=== PATIENT | female | born 1940 | race Caucasian/White ===

== ENCOUNTER 2017-12-05 08:35 | Outpatient (CLI) | payer MEDICARE, BC | END 2017-12-05 08:36 | disposition home or self-care (01) | LOC: BICMAMMO 08:35 | PROVIDERS: ATTEND Internal Medicine | DX: Z12.31 Encounter for screening mammogram for malignant neoplasm of breast (principal); M81.0 Age-related osteoporosis without current pathological fracture; R92.1 Mammographic calcification found on diagnostic imaging of breast; Z85.850 Personal history of malignant neoplasm of thyroid | CPT/HCPCS: 77063; 77067; 77080 ==

== ENCOUNTER 2018-01-31 14:05 | Outpatient (CLI) | payer MEDICARE, BC | END 2018-01-31 14:06 | disposition home or self-care (01) | LOC: BICRAD 14:05 | PROVIDERS: ATTEND Internal Medicine | DX: M25.551 Pain in right hip (principal); M25.552 Pain in left hip; M16.0 Bilateral primary osteoarthritis of hip ==

== ENCOUNTER 2018-11-12 07:15 | Emergency (ER) | payer MEDICARE, BC ==
[2018-11-12 07:59] LABS: #Basophils 0.1 thou/uL (0.0-0.2); #Eosinphils 0.1 thou/uL (0.0-0.7); #Lymphocytes 1.6 thou/uL (1.20-3.40); #Monocytes 1.4 thou/uL (0.11-0.59); #Neutrophils 7.6 thou/uL (1.40-6.50); %Eosinophils 0.8 % (0.0-10.0); %Lymphocytes 14.7 % (21.0-51.0); %Monocytes 13.3 % (0.0-10.0); %Neutrophils 70.1 % (42.0-75.0); Hemoglobin 14.2 g/dL (12.0-16.0); Mean Corpuscular HGB CONC 35.9 g/dL (32.0-36.0); Mean Corpuscular Hemoglobin 33.2 pg (27.0-31.0); Mean Corpuscular Volume 92.3 fL (78.0-98.0); Mean Platelet Volume 8.1 fL (7.4-10.4); Platelet Count 248 thou/uL (130-400); RBC Distribution Width 13.2 % (11.5-14.5); Red Blood Cell (RBC) Count 4.28 mill/uL (4.20-5.40); White Blood Cell (WBC) Count 10.8 thou/uL (4.8-10.8)
[2018-11-12] MEDS ORDERED: Metoprolol Tartrate 5 MG/5 ML VIAL ONE (07:59)
[2018-11-12] MEDS ORDERED: cloNIDine 0.1 MG TAB ONE (08:09)
[2018-11-12 08:15] LABS: ALT (SGPT) 12 U/L (8-55); AST (SGOT) 16 U/L (5-34); Albumin 4.3 g/dL (3.4-4.8); Alkaline Phosphatase 55 U/L (40-150); Anion Gap 17 mmol/L (10-20); BUN (Urea Nitrogen) 16 mg/dL (9.8-20.1); Bilirubin, Total 0.6 mg/dL (0.2-1.2); Calc. Creatinine Clearance 0 mL/min (70-130); Calcium 9.3 mg/dL (7.8-10.44); Carbon Dioxide 22 mmol/L (23-31); Chloride 101 mmol/L (98-107); Estimated GFR-MDRD 76; Globulin 2.3 g/dL (2.4-3.5); Glucose 120 mg/dL (83-110); Potassium 4.3 mmol/L (3.5-5.1); Protein, Total 6.6 g/dL (6.0-8.3); Sodium 136 mmol/L (136-145)
== END 2018-11-12 09:06 | disposition home or self-care (01) ==
LOC: ERS 07:15
DX: I10 Essential (primary) hypertension (principal); F31.9 Bipolar disorder, unspecified; Z79.82 Long term (current) use of aspirin; Z79.899 Other long term (current) drug therapy
CPT/HCPCS: 36415; 80053; 83880; 84484; 85025; 93005

== ENCOUNTER 2018-12-25 10:31 | Observation (INO) | payer MEDICARE, BC ==
[2018-12-25 11:01] LABS: #Basophils 0.1 thou/uL (0.0-0.2); #Eosinphils 0.1 thou/uL (0.0-0.7); #Monocytes 1.5 thou/uL (0.11-0.59); #Neutrophils 9.9 thou/uL (1.40-6.50); %Basophils 0.8 % (0.0-1.0); %Eosinophils 0.8 % (0.0-10.0); %Lymphocytes 14.4 % (21.0-51.0); %Monocytes 11.3 % (0.0-10.0); %Neutrophils 72.8 % (42.0-75.0); Hemoglobin 15.9 g/dL (12.0-16.0); Mean Corpuscular HGB CONC 34.4 g/dL (32.0-36.0); Mean Corpuscular Hemoglobin 32.2 pg (27.0-31.0); Mean Corpuscular Volume 93.4 fL (78.0-98.0); Mean Platelet Volume 8.7 fL (7.4-10.4); Platelet Count 372 thou/uL (130-400); RBC Distribution Width 12.1 % (11.5-14.5); Red Blood Cell (RBC) Count 4.95 mill/uL (4.20-5.40); White Blood Cell (WBC) Count 13.6 thou/uL (4.8-10.8)
--- NOTE | 2018-12-25 11:05 | RAD ---
SINGLE VIEW OF THE CHEST: Comparison: None. History: Abnormal EKG, chest pain. FINDINGS: Single view of the chest shows a normal sized cardiomediastinal silhouette. There is no evidence of c onsolidation, mass, or pleural effusion. The bones are unremarkable. IMPRESSION: No evidence of acute cardiopulmonary disease. POS: [facility]
[2018-12-25 11:31] LABS: Acetaminophen Less than 6.0 mcg/mL (10.0-30.0); Alcohol Less than 10 mg/dL (Less than 10); Salicylate Less than 8.0 mg/dL (15.0-30.0)
[2018-12-25 11:33] LABS: ALT (SGPT) 14 U/L (8-55); AST (SGOT) 15 U/L (5-34); Albumin 4.6 g/dL (3.4-4.8); Alkaline Phosphatase 62 U/L (40-150); Anion Gap 18 mmol/L (10-20); BUN (Urea Nitrogen) 12 mg/dL (9.8-20.1); Bilirubin, Total 0.9 mg/dL (0.2-1.2); CK (CPK) 49 U/L (29-168); Calc. Creatinine Clearance 0 mL/min (70-130); Carbon Dioxide 19 mmol/L (23-31); Chloride 100 mmol/L (98-107); Estimated GFR-MDRD 68; Globulin 2.9 g/dL (2.4-3.5); Glucose 123 mg/dL (83-110); Lipase 149 U/L (8-78); Potassium 4.7 mmol/L (3.5-5.1); Protein, Total 7.5 g/dL (6.0-8.3); Sodium 132 mmol/L (136-145)
[2018-12-25] MEDS ORDERED: Nitroglycerin 2% Ointment 1 INCH/1 GM Packet ONE (11:45)
[2018-12-25] MEDS ORDERED: Aspirin Chewable 81 MG TAB ONE (11:45)
[2018-12-25 11:56] LABS: Bilirubin Small (Negative); Blood, Urine Negative (Negative); Clarity CLEAR (Clear); Glucose, Urine (Dipstick) Negative (Negative); Leukocyte Trace (Negative); Nitrite Negative (Negative); Protein, Urine (Dipstick) 30 mg/dL (Neg-Trace); Specific Gravity, Urine 1.023 (1.002-1.036)
[2018-12-25 11:58] LABS: Bacteria/HPF None Seen HPF (None Seen); Pathc Cast-AUWi Flag 1.59 (0-2.49); RBC/HPF 0-3 HPF (0-3)
[2018-12-25 12:05] LABS: Amphetamine Not Detected (NotDetected); Barbiturates Screen Not Detected (NotDetected); Benzodiazepine Screen Not Detected (NotDetected); Cocaine Metabolite Screen Not Detected (NotDetected); Medtox Control Line Valid? VALID (VALID); Medtox Reader # READER 1; Methadone Not Detected (NotDetected); Methamphetamine Detected (NotDetected); Opiate Screen Not Detected (NotDetected); Oxycodone Screen Not Detected (NotDetected); Phencyclidine (PCP) Not Detected (NotDetected); THC/Cannabinoid Screen Not Detected (NotDetected); Tricyclic Screen Not Detected (NotDetected)
[2018-12-25 12:12] LABS: Hyaline Casts/LPF 0-3 HYALINE CAST LPF (0-3 Hyaline)
[2018-12-25] MEDS ORDERED: Acetaminophen 325 MG TAB PO PRN (15:51)
[2018-12-25] MEDS ORDERED: Senokot S 8.6-50 MG TAB PO PRN (15:51)
[2018-12-25] MEDS ORDERED: Bisacodyl 5 MG TAB PO PRN (15:51)
[2018-12-25 18:07] VITALS: BMI 32.4
[2018-12-25] MEDS: Enoxaparin Sodium 100 MG/ML SYRINGE SC SCH (20:31)
--- NOTE | 2018-12-25 20:36 | PDOC.EVN ---
Event Note - Event Note Event Note: pt seen an examined, send from pcp office for abnormal ekg. Pt has a hx of paroxysmal afib not on AC. pt states that she went into afib on sunday. Her heart rate has been <100 however she has been feeling weak. Pt has been under a lot of stress and feels this has triggered her afib. she went to her pcp and there was a concern for possible pause so she was sent to er.
[2018-12-26] MEDS ORDERED: ALPRAZolam 0.25 MG TAB PO PRN (01:09)
[2018-12-26] MEDS: Ondansetron ODT 4 MG TAB PO PRN ×2 (02:18→18:05)
[2018-12-26] MEDS: Calcium Carbonate 500 MG ChewTAB PO PRN ×3 (02:18→21:53)
[2018-12-26 06:33] LABS: #Basophils 0.1 thou/uL (0.0-0.2); #Eosinphils 0.3 thou/uL (0.0-0.7); #Lymphocytes 2.8 thou/uL (1.20-3.40); #Monocytes 1.6 thou/uL (0.11-0.59); #Neutrophils 8.3 thou/uL (1.40-6.50); %Basophils 0.5 % (0.0-1.0); %Eosinophils 2.3 % (0.0-10.0); %Lymphocytes 21.6 % (21.0-51.0); %Monocytes 12.3 % (0.0-10.0); %Neutrophils 63.2 % (42.0-75.0); Mean Corpuscular Volume 94.1 fL (78.0-98.0); Platelet Count 303 thou/uL (130-400); RBC Distribution Width 12.1 % (11.5-14.5); Red Blood Cell (RBC) Count 4.68 mill/uL (4.20-5.40); White Blood Cell (WBC) Count 13.1 thou/uL (4.8-10.8)
[2018-12-26 06:42] LABS: Anion Gap 17 mmol/L (10-20); BUN (Urea Nitrogen) 11 mg/dL (9.8-20.1); Calc. Creatinine Clearance 94 mL/min (70-130); Calcium 9.6 mg/dL (7.8-10.44); Carbon Dioxide 22 mmol/L (23-31); Chloride 97 mmol/L (98-107); Estimated GFR-MDRD 75; Glucose 83 mg/dL (83-110); Potassium 4.4 mmol/L (3.5-5.1); Sodium 132 mmol/L (136-145)
[2018-12-26] MEDS ORDERED: ADENOSINE 60 MG/20 ML VIAL ONE (07:43)
[2018-12-26] MEDS ORDERED: Atenolol 50 MG TAB PO SCH (09:00)
[2018-12-26] MEDS: Enoxaparin Sodium 100 MG/ML SYRINGE SC SCH ×2 (09:48→21:53)
--- NOTE | 2018-12-26 10:16 | CON ---
DATE OF CONSULTATION: 12/26/2018 REASON FOR CONSULTATION: Chest pain, history of atrial fibrillation, epigastric pain. HISTORY OF PRESENT ILLNESS: This is a delightful 78-year-old woman, patient of Dr. Wheat, who is admitted with epigastric pain, atrial fibrillation, and also has had some chest pain. Ms. Jernigan has a history of chronic atrial fibrillation. She takes atenolol on a daily basis. She said 50 mg twice a day, but recently has been taking more because the fibrillation was going too fast and it made her uncomfortable. She saw Dr. Wheat yesterday. The patient also reported some epigastric discomfort. The patient states she also has anxiety issues and takes medicine for anxiety. She said since she has been here, she has had some sharp left upper chest pain. It is very localized, very atypical for angina (nonanginal). PAST MEDICAL HISTORY: 1. Chronic atrial fibrillation. I saw the patient in the office in 2013, at which time, she was advised to go on anticoagulants, but apparently the patient has declined anticoagulants. 2. Some history of anxiety. ALLERGIES: TO ASPIRIN, ERYTHROMYCIN, EPINEPHRINE, FLECAINIDE, IBUPROFEN. SHE ALSO REPORTS APIXABAN, HAS AN ALLERGY TO PANTOPRAZOLE. REVIEW OF SYSTEMS: CONSTITUTIONAL: No significant weight gain or loss. VISION: No changes. HEARING: No changes. PULMONARY: No cough or wheezing. GASTROINTESTINAL: No nausea, vomiting, or diarrhea. SKIN: No rashes. NEUROLOGIC: No unilateral weakness or numbness. PSYCHIATRIC: No unusual depression or anxiety. CARDIAC: As outlined above. FAMILY HISTORY: Negative for heart disease at a young age. PHYSICAL EXAMINATION: GENERAL: This is a pleasant 78-year-old woman, states she is hungry. She did not have breakfast this morning. VITAL SIGNS: Her blood pressure 162/79, pulse 60, it is irregularly irregular. HEENT: Eyes, sclerae nonicteric. Mouth, mucous membranes moist. NECK: Supple. No lymphadenopathy. LUNGS: Clear. CARDIAC: Irregularly irregular. No murmur, rub, or gallop. ABDOMEN: Soft and nontender. She is obese. EXTREMITIES: No clubbing or cyanosis. There is no edema. PERTINENT LABORATORY DATA: She did have a 3-second pause this morning at 1:23 a.m. She did not receive atenolol last night. Cardiac enzymes are negative. TSH is 0.1275 and free T4 of 1.96. ASSESSMENT: 1. 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 2. Epigastric pain, probably gastrointestinal. 3. Obesity. 4. Left upper chest pain, atypical for angina. 5. Previously, she has declined anticoagulants. PLAN: 1. Echocardiogram. 2. Stress testing to look for any obstructive coronary artery disease. 3. Options may be somewhat limited as she apparently has declined anticoagulants and states she is allergic to aspirin. This lady can be taken into consideration when a treatment plan is formulated. We will be glad to follow with you. Job ID: [id number]
--- NOTE | 2018-12-26 10:45 | HP ---
CHIEF COMPLAINT: Fatigue. HISTORY OF PRESENT ILLNESS: The patient is a very pleasant 78-year-old female with a history of paroxysmal AFib, currently not on any anticoagulation, hypothyroidism, who presented to the hospital with complaints of fatigue. The patient stated that she normally has paroxysmal AFib. However, on Sunday, her rhythm converted into AFib. 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 The patient stated that her rate was always less than 100, however, for the past few days, she has been feeling very fatigued. She took an additional dose of her atenolol at home. The patient denies any chest pain, shortness of breath, any nausea, vomiting, or diarrhea. The patient stated that she went to see her PCP today since she continued to be in atrial fibrillation. At this time, she was brought into the hospital for further evaluation. There was also concern for possible AV node blocks and also there was some concern for a possible aflutter. PAST MEDICAL HISTORY: History of thyroid cancer, status post thyroidectomy. She has a history of hypothyroidism, history of hypertension, paroxysmal AFib. She also has a history of depression and also PTSD, history of mitral valve prolapse. PAST SURGICAL HISTORY: She has had a thyroidectomy. She had a cholecystectomy and a hysterectomy. SOCIAL HISTORY: She drinks a glass of wine a day. Denies any alcohol use or drug use or smoking history. She is a full code. Lives with her . REVIEW OF SYSTEMS: All negative except the ones mentioned above in the HPI. ALLERGIES: SHE HAS MULTIPLE ALLERGIES INCLUDING ADVIL, VERTIGO; AMOXICILLIN, RASH REACTION; DOXYCYCLINE, RASH; ERYTHROMYCIN, RASH; MACROBID, RASH; SULFA, RASH; TAMBOCOR, FLANK PAIN; ACIPHEX, RASH. CURRENT MEDICATIONS: The patient takes, 1. Atenolol 50 mg b.i.d. 2. Synthroid 175 daily. 3. Divalproex extended release 250 mg one b.i.d., however, she has been weaning off this. FAMILY HISTORY: She has a family history of some heart disease in her family. PHYSICAL EXAMINATION: VITAL SIGNS: As of the following; temperature of 97.9, pulse 68, respiratory rate 16, 96% on room air, and blood pressure 162/79. GENERAL: She is awake, alert, and oriented x3. Does not appear in distress. CV: Irregularly irregular, not tachycardiac. LUNGS: Clear to auscultation. No rhonchi or wheezes noted. ABDOMEN: Soft and nontender. Bowel sounds are present x2. EXTREMITIES: No edema. Pedal pulses are present x2. NEUROVASCULAR: Neurovascular-kunz, no focal deficits noted. SKIN: No cuts, lesions, or bruises noted. HEENT: Normocephalic, atraumatic. NECK: No lymphadenopathy noted. LABORATORY RESULTS: As of the following; WBCs of 13.6, hemoglobin of 15.9, hematocrit of 46.3, and platelets of 372. Chemistries; sodium of 132, potassium of 4.4, BUN of 17, and creatinine of . Troponin x3 were negative. Her TSH was 0.127 and free T4 was 1.96. IMAGING DATA: EKG on my interpretation, appeared to be in AFib. There was some concern for possible aflutter. Chest x-ray that was done, appeared to have no acute abnormalities. ASSESSMENT AND PLAN: The patient is a very pleasant 78-year-old female, who comes to the hospital with complaints of fatigue. 1. Atrial fibrillation, currently rate controlled. The patient is on anticoagulation. I did speak with her extensively in regard if she did have a stroke it will be pretty detrimental. The patient understands and is open to start her on some subcu Lovenox. She has currently CHADS score of 3 to 4. We will consult Cardiology. The patient does have a history of mitral valve prolapse. We will continue her home medications. 2. Hypothyroidism. We will continue her home dose and we will adjust her dose based on her lab results. 3. History of depression. The patient states that she is currently off all antidepressants. She has been weaned of this. 4. Deep venous thrombosis prophylaxis. The patient is already on Lovenox subcu. Job ID: [id number]
--- NOTE | 2018-12-26 14:43 | PDOC.EVN ---
Event Note - Event Note Event Note: pt seen and will be discussed w KULWINDER Monique.chart reviewed. Getting echo.awaiting stress test. cardiology recs noted. Reduce levothyroxine as TSH low and T4 high. Pt educated See full note form Ms Monique for details.
--- NOTE | 2018-12-26 17:01 | PDOC.PN ---
- Subjective Encounter Start Date: 12/26/18 Encounter Start Time: 16:59 Subjective: Patient found resting comfortably. Reports mild nausea. -: Experienced nausea last night due to being NPO. -: Settled with Zofran and Tums. No vomiting. Denies any CP. No sob. Reports feeling tired after having tests done today. No headaches or dizziness. Moving her bowels as normal. No urinary symptoms. Have been afebrile. She was given something to eat after her stress test and tolerated it well. - Objective Resuscitation Status - Order Detail: 12/25/18 15:51 Resuscitation Status Routine Resuscitation Status: FULL: Full Resuscitation Vital Signs & Weight: Vital Signs (12 hours) Temp Pulse Resp BP Pulse Ox 12/26/18 15:49 97.4 F L 81 21 H 135/90 96 12/26/18 11:25 97.6 F 90 20 162/80 H 98 12/26/18 09:40 97.8 F 90 22 H 162/84 H 93 L Weight Weight 215 lb 1.6 oz I&O: 12/25/18 12/26/18 12/27/18 06:59 06:59 06:59 Intake Total 800 Output Total 900 Balance -100 Result Diagrams: 12/26/18 04:27 12/26/18 04:27 Phys Exam - Physical Examination Constitutional: NAD HEENT: PERRLA, moist MMs, oral pharynx no lesions Neck: no nodes, supple, full ROM Respiratory: clear to auscultation bilateral Cardiovascular: RRR Gastrointestinal: soft, non-tender, no distention, positive bowel sounds Musculoskeletal: no edema Neurological: normal sensation, moves all 4 limbs Lymphatic: no nodes Psychiatric: normal affect, A&O x 3 Skin: no rash, normal turgor Dx/Plan (1) Nausea Code(s): R11.0 - NAUSEA Status: Acute (2) Atrial fibrillation Code(s): I48.91 - UNSPECIFIED ATRIAL FIBRILLATION Status: Chronic (3) Hypothyroidism Code(s): E03.9 - HYPOTHYROIDISM, UNSPECIFIED Status: Chronic (4) Hypertension Code(s): I10 - ESSENTIAL (PRIMARY) HYPERTENSION Status: Chronic - Plan cont current plan of care Patient status post Echo and stress test. Awaiting results. -: Continue to monitor BP. -: Further recommendations as per Dr. Goncalves. -: Levothyroxine decreased from 175 to 125 mcg. -: Ondansetron PRN for nausea. * .
--- NOTE | 2018-12-26 18:58 | NM ---
CARDIAC SPECT: CLINICAL HISTORY: 78-year-old female with chest pain, atrial fibrillation, and hypertension. TECHNIQUE: A myocardial perfusion scan was performed using the single isotope one day protocol with technetium-9 9m sestamibi. 9 mCi were injected intravenously for the rest exam followed by 29 mCi for the stress e xam. Pharmacologic stress with Adenosine was monitored and interpreted by Dr. Bethel Doyle. FINDINGS: Homogeneous tracer distribution is seen in the myocardial segments on stress and rest images without fixed or reversible defects. GATED SPECT LVEF: 68%. WALL MOTION EXAM: Normal. IMPRESSION: Normal myocardial perfusion scan. POS: [facility]
[2018-12-27] MEDS: Ondansetron ODT 4 MG TAB PO PRN (02:06)
[2018-12-27] MEDS ORDERED: Levothyroxine Sodium 125 MCG TAB PO SCH (06:00)
[2018-12-27] MEDS ORDERED: Levothyroxine 175 MCG TAB PO SCH ×2 (06:00)
[2018-12-27 07:46] VITALS: BP 138/61; TEMP 97.7
[2018-12-27] MEDS: Calcium Carbonate 500 MG ChewTAB PO PRN (08:27)
[2018-12-27] MEDS: Enoxaparin Sodium 100 MG/ML SYRINGE SC SCH (08:27)
[2018-12-27] MEDS ORDERED: Apixaban 5 MG TAB PO SCH (09:00)
[2018-12-27] MEDS ORDERED: Atenolol 50 MG TAB PO SCH (09:00)
--- NOTE | 2018-12-27 09:05 | PRG ---
DATE OF SERVICE: 12/27/2018 SUBJECTIVE: Ms. Jernigan is doing well today. She still has a little bit of an upset stomach. No chest pain or pressure. No shortness of breath. OBJECTIVE: VITAL SIGNS: Her blood pressure is 138/60, pulse 70, it is irregular. LUNGS: Clear. CARDIAC: Irregularly irregular. ABDOMEN: Soft, nontender. DIAGNOSTIC DATA: 1. Echocardiogram shows normal left ventricular function. She has only mildly enlarged left atrium. There is mild to moderate mitral regurgitation. 2. Stress test showed no ischemia. ASSESSMENT AND PLAN: 1. I discussed the situation in detail with the patient. The patient is agreeable to try anticoagulation again. She said she actually is not allergic to Eliquis. She initially reported she was, but said she has not. I also discussed the other option of Coumadin. She prefers to go on the Eliquis 5 mg twice a day. 2. She has also had a 3-second pause during this admission. She was taking atenolol 50 mg twice a day. We will cut it to once a day. The patient will be released to home on atenolol 50 mg a day and Eliquis 5 mg twice a day. See us in 5 or [address] Camryn Wheat. Discussed with the patient she should not take aspirin or anti-inflammatories on the Eliquis. Job ID: [id number]
--- NOTE | 2019-01-03 13:10 | STRESS ---
Acquisition Time: 2018-12-26 14:10:12 Total Exercise Time: 00:04:00 Test Indications: CHEST PAIN Medications: Protocol: ADENOSINE Max HR: 102 BPM 72% of Pred: 141 BPM Max BP: 142/076 mmHG Max Work Load: 1.0 METS RESTING ECG: ATRIAL FIBRILLATION AT 88 BPM WITH RARE PVC'S SYMPTOMS: DYSPNEA NORMAL BP RESPONSE ECTOPY: OCCASIONAL PVC'S ECG STRESS: NO SIGNIFICANT CHANGES INTERPRETATION: AWAIT NUCLEAR IMAGES FOR DEFINITIVE DIAGNOSIS Confirmed by DOUG MONTANA ([id number]), associate entertainment editor EVERT GAINES ([id number]) on 01/03/2019 1:10:29 PM Referred By: MD Mitzy REMY Confirmed By:DOUG MONTANA
== END 2018-12-27 10:58 | disposition home or self-care (01) ==
LOC: ERS 10:31 → ERHOLD 12:49 → 2SW 17:27
PROVIDERS: ADMIT Internal Medicine; ATTEND Internal Medicine
DX: I48.2 Chronic atrial fibrillation (principal); I10 Essential (primary) hypertension; E03.9 Hypothyroidism, unspecified; F32.9 Major depressive disorder, single episode, unspecified; F43.10 Post-traumatic stress disorder, unspecified; E66.9 Obesity, unspecified; Z68.1 Body mass index [BMI] 19.9 or less, adult; Z85.850 Personal history of malignant neoplasm of thyroid; Z90.89 Acquired absence of other organs; Z90.49 Acquired absence of other specified parts of digestive tract; Z90.710 Acquired absence of both cervix and uterus; Z88.1 Allergy status to other antibiotic agents; Z88.6 Allergy status to analgesic agent; Z88.2 Allergy status to sulfonamides; Z88.8 Allergy status to other drugs, medicaments and biological substances; Z79.01 Long term (current) use of anticoagulants; Z79.899 Other long term (current) drug therapy
CPT/HCPCS: 71045; 78452; 80048; 80306; 80307; 82140; 82550; 83690; 83880; 84439; 84484 ×2; 85025; 85379; 87086; 93005; 93017; 93306; 94760 ×2; 96372 ×3; 99285; A9500; G0378; 36415; 80053; 81003; 81015; 84443; J0153; J1650; Q0162

== ENCOUNTER 2018-12-29 07:58 | Emergency (ER) | payer MEDICARE, BC ==
[2018-12-29] MEDS ORDERED: Ondansetron PF 4 MG/2 ML Vial ONE (08:49)
[2018-12-29 08:50] LABS: #Basophils 0.1 thou/uL (0.0-0.2); #Eosinphils 0.1 thou/uL (0.0-0.7); #Lymphocytes 1.4 thou/uL (1.20-3.40); #Monocytes 1.1 thou/uL (0.11-0.59); #Neutrophils 6.8 thou/uL (1.40-6.50); %Basophils 0.6 % (0.0-1.0); %Monocytes 11.7 % (0.0-10.0); %Neutrophils 71.6 % (42.0-75.0); Hemoglobin 14.5 g/dL (12.0-16.0); Mean Corpuscular HGB CONC 32.7 g/dL (32.0-36.0); Mean Corpuscular Hemoglobin 31.2 pg (27.0-31.0); Mean Corpuscular Volume 95.4 fL (78.0-98.0); Mean Platelet Volume 8.6 fL (7.4-10.4); Platelet Count 337 thou/uL (130-400); RBC Distribution Width 12.1 % (11.5-14.5); Red Blood Cell (RBC) Count 4.66 mill/uL (4.20-5.40); White Blood Cell (WBC) Count 9.5 thou/uL (4.8-10.8)
[2018-12-29] MEDS ORDERED: Pantoprazole 40 MG VIAL ONE (08:50)
[2018-12-29] MEDS ORDERED: Mag-Al 1200 mg/1200 mg/30 ML UDCUP ONE (08:50)
[2018-12-29] MEDS ORDERED: Lidocaine Viscous Sol 2% 15 ml UD Cup ONE (08:50)
[2018-12-29 09:42] LABS: ALT (SGPT) 33 U/L (8-55); AST (SGOT) 31 U/L (5-34); Albumin 3.8 g/dL (3.4-4.8); Alkaline Phosphatase 49 U/L (40-150); Anion Gap 12 mmol/L (10-20); BUN (Urea Nitrogen) 11 mg/dL (9.8-20.1); Bilirubin, Total 0.7 mg/dL (0.2-1.2); Calc. Creatinine Clearance 0 mL/min (70-130); Calcium 8.6 mg/dL (7.8-10.44); Carbon Dioxide 22 mmol/L (23-31); Chloride 99 mmol/L (98-107); Estimated GFR-MDRD 77; Globulin 2.1 g/dL (2.4-3.5); Glucose 127 mg/dL (83-110); Lipase 69 U/L (8-78); Potassium 3.6 mmol/L (3.5-5.1); Protein, Total 5.9 g/dL (6.0-8.3); Sodium 129 mmol/L (136-145)
[2018-12-29] MEDS ORDERED: ISOVUE-370 76%-LOCM 1 ML ONE (09:59)
--- NOTE | 2018-12-29 10:00 | CT ---
CT ABDOMEN AND PELVIS WITH CONTRAST: Date: 12/29/18 INDICATION: 78-year-old female with abdominal pain and nausea. FINDINGS: There is mild fibrosis seen at the imaged lung base. Evidence of prior cholecystectomy. Small hypoden sities are seen within the renal parenchyma bilaterally, statistically cysts, although some are too s mall to definitively characterize. There is no acute abnormality of the solid abdominal organs. Exten sive colonic diverticula is present, most pronounced at the sigmoid colon without CT evidence of acut e diverticulitis. No free air or free fluid. There is incomplete assessment of the bowel without ente viktoriya contrast administration. There is a focus of increased density with internal air locules at the l ower right ventral abdominal subcutaneous tissue which may be related to recent injection site. Corre late clinically. Scattered vascular disease is seen. There are diffuse osseous degenerative changes. IMPRESSION: 1. Extensive colonic diverticulosis. 2. Mild pulmonary fibrosis of the incidentally imaged lung bases. 3. Small renal hypodensities bilaterally, statistically cysts. POS: [facility]
[2018-12-29 10:17] LABS: Bilirubin Negative (Negative); Blood, Urine Negative (Negative); Clarity CLEAR (Clear); Glucose, Urine (Dipstick) Negative (Negative); Leukocyte Negative (Negative); Nitrite Negative (Negative); Protein, Urine (Dipstick) Negative (Neg-Trace); Urobilinogen 0.2 mg/dL (0.2-1.0); pH, Urine 7.5 (5.0-9.0)
[2018-12-29 10:19] LABS: Specific Gravity, Urine Greater than 1.060 (1.002-1.036)
== END 2018-12-29 10:38 | disposition home or self-care (01) ==
LOC: ERS 07:58
DX: R10.13 Epigastric pain (principal); E03.9 Hypothyroidism, unspecified; I10 Essential (primary) hypertension; I48.91 Unspecified atrial fibrillation; F31.9 Bipolar disorder, unspecified; F43.10 Post-traumatic stress disorder, unspecified; Z79.899 Other long term (current) drug therapy
CPT/HCPCS: 36415; 74177; 80053; 81003; 83690; 84484; 85025; 93005; 96374; 96375; C9113; J2405; Q9966

== ENCOUNTER 2019-03-15 19:38 | Emergency (ER) | payer MEDICARE, BC ==
--- NOTE | 2019-03-15 21:01 | RAD ---
Portable frontal chest radiograph: 03/15/2019 COMPARISON: 12/25/2018 HISTORY: Altered mental status FINDINGS: Stable prominence of the cardiac silhouette, mild interstitial prominence, and pulmonary hy perinflation. No pneumothorax or pleural fluid. No lobar consolidation or alveolar edema. IMPRESSION: Stable appearance of the chest.
[2019-03-15 21:04] LABS: #Basophils 0.1 thou/uL (0.0-0.2); #Lymphocytes 1.2 thou/uL (1.20-3.40); #Monocytes 1.7 thou/uL (0.11-0.59); #Neutrophils 11.3 thou/uL (1.40-6.50); %Basophils 0.4 % (0.0-1.0); %Eosinophils 0.2 % (0.0-10.0); %Lymphocytes 8.7 % (21.0-51.0); %Neutrophils 78.8 % (42.0-75.0); Hemoglobin 13.3 g/dL (12.0-16.0); Mean Corpuscular HGB CONC 33.7 g/dL (32.0-36.0); Mean Corpuscular Volume 94.9 fL (78.0-98.0); Mean Platelet Volume 7.9 fL (7.4-10.4); Platelet Count 330 thou/uL (130-400); RBC Distribution Width 13.1 % (11.5-14.5); Red Blood Cell (RBC) Count 4.17 mill/uL (4.20-5.40); White Blood Cell (WBC) Count 14.3 thou/uL (4.8-10.8)
--- NOTE | 2019-03-15 21:08 | CT ---
Head CT without contrast 03/15/2019: HISTORY: Altered mental status TECHNIQUE: Axial CT imaging at 5 mm intervals from vertex through skull base without contrast FINDINGS: Imaged paranasal sinuses/mastoid air cells demonstrate wall thickening of an opacified righ t sphenoid sinus, suggesting chronic sinusitis. Follow-up nonemergent contrast enhanced brain MRI suggested. No acute osseous abnormality is noted. No intracranial hemorrhage, midline shift, mass eff ect, or ventricular enlargement. IMPRESSION: No acute findings. Abnormal appearance of the right sphenoid sinus, for which follow-up b rain MRI is suggested.
[2019-03-15 21:20] LABS: ALT (SGPT) 41 U/L (8-55); AST (SGOT) 52 U/L (5-34); Albumin 4.4 g/dL (3.4-4.8); Alkaline Phosphatase 57 U/L (40-150); Anion Gap 18 mmol/L (10-20); BUN (Urea Nitrogen) 37 mg/dL (9.8-20.1); Bilirubin, Total 0.7 mg/dL (0.2-1.2); CK (CPK) 973 U/L (29-168); Calc. Creatinine Clearance 0 mL/min (70-130); Calcium 9.5 mg/dL (7.8-10.44); Carbon Dioxide 22 mmol/L (23-31); Chloride 98 mmol/L (98-107); Estimated GFR-MDRD 63; Globulin 2.4 g/dL (2.4-3.5); Glucose 103 mg/dL (83-110); Potassium 4.2 mmol/L (3.5-5.1); Protein, Total 6.8 g/dL (6.0-8.3); Sodium 134 mmol/L (136-145)
[2019-03-15 21:21] LABS: Acetaminophen Less than 6.0 mcg/mL (10.0-30.0); Alcohol Less than 10 mg/dL (Less than 10); Salicylate Less than 8.0 mg/dL (15.0-30.0)
[2019-03-15] MEDS ORDERED: Haloperidol Lactate 5 MG/ML VIAL ONE (22:21)
[2019-03-15 23:46] LABS: Bilirubin Small (Negative); Blood, Urine Negative (Negative); Clarity CLEAR (Clear); Glucose, Urine (Dipstick) Negative (Negative); Leukocyte Negative (Negative); Nitrite Negative (Negative); Protein, Urine (Dipstick) Trace mg/dL (Neg-Trace); Specific Gravity, Urine 1.023 (1.002-1.036); pH, Urine 5.5 (5.0-9.0)
[2019-03-16] LABS: Amphetamine Not Detected (NotDetected); Barbiturates Screen Not Detected (NotDetected); Benzodiazepine Screen Not Detected (NotDetected); Cocaine Metabolite Screen Not Detected (NotDetected); Medtox Control Line Valid? VALID (VALID); Medtox Reader # READER 1; Methadone Not Detected (NotDetected); Methamphetamine Not Detected (NotDetected); Opiate Screen Not Detected (NotDetected); Oxycodone Screen Not Detected (NotDetected); Phencyclidine (PCP) Not Detected (NotDetected); THC/Cannabinoid Screen Not Detected (NotDetected); Tricyclic Screen Not Detected (NotDetected)
[2019-03-16] MEDS ORDERED: Ziprasidone 20 MG VIAL ONE (06:15)
[2019-03-16 20:26] LABS: ALT (SGPT) 41 U/L (8-55); AST (SGOT) 43 U/L (5-34); Albumin 3.9 g/dL (3.4-4.8); Alkaline Phosphatase 52 U/L (40-150); Anion Gap 14 mmol/L (10-20); BUN (Urea Nitrogen) 27 mg/dL (9.8-20.1); Bilirubin, Total 0.4 mg/dL (0.2-1.2); CK (CPK) 516 U/L (29-168); Calc. Creatinine Clearance 0 mL/min (70-130); Calcium 8.6 mg/dL (7.8-10.44); Carbon Dioxide 24 mmol/L (23-31); Chloride 103 mmol/L (98-107); Estimated GFR-MDRD 67; Glucose 107 mg/dL (83-110); Potassium 3.7 mmol/L (3.5-5.1); Protein, Total 5.9 g/dL (6.0-8.3); Sodium 137 mmol/L (136-145)
[2019-03-17] MEDS ORDERED: Levothyroxine 175 MCG TAB PO SCH (06:45)
[2019-03-17] MEDS ORDERED: Atenolol 50 MG TAB PO SCH (06:45)
[2019-03-17] MEDS ORDERED: Apixaban 5 MG TAB PO SCH (07:00)
[2019-03-17] MEDS ORDERED: Divalproex Sodium 250 MG (DR) TAB PO SCH (09:00)
== END 2019-03-17 17:03 ==
LOC: ERS 19:38
DX: F31.9 Bipolar disorder, unspecified (principal); F23 Brief psychotic disorder; E03.9 Hypothyroidism, unspecified; I10 Essential (primary) hypertension; I48.91 Unspecified atrial fibrillation; Z79.899 Other long term (current) drug therapy
CPT/HCPCS: 36415; 70450; 71045; 80053; 80306; 80307; 81003; 82550; 84443; 84484; 85025; 87086; 93005; 96360; 96372; J1630; J3486

== ENCOUNTER 2019-08-06 11:09 | Inpatient (IN) | payer MEDICARE, BC ==
--- NOTE | 2019-08-06 12:00 | RAD ---
2 views right shoulder: 08/06/2019 COMPARISON: None HISTORY: Fall, trauma, pain FINDINGS: 2 scapular Y views are provided demonstrating no evidence for dislocation of the glenohumer al joint. There is a comminuted obliquely oriented impacted fracture of the proximal right humerus. Dedicated imaging of the right humerus advised. IMPRESSION: Proximal right humeral fracture. This is not well assessed on this examination. Recommend dedicated right humerus series.
[2019-08-06 12:07] LABS: #Basophils 0.1 thou/uL (0.0-0.2); #Eosinphils 0.1 thou/uL (0.0-0.7); #Lymphocytes 1.2 thou/uL (1.20-3.40); #Monocytes 1.2 thou/uL (0.11-0.59); #Neutrophils 7.3 thou/uL (1.40-6.50); %Basophils 1.1 % (0.0-1.0); %Eosinophils 0.9 % (0.0-10.0); %Lymphocytes 12.2 % (21.0-51.0); %Monocytes 12.4 % (0.0-10.0); %Neutrophils 73.5 % (42.0-75.0); Hemoglobin 13.4 g/dL (12.0-16.0); Mean Corpuscular HGB CONC 34.1 g/dL (32.0-36.0); Mean Corpuscular Hemoglobin 32.8 pg (27.0-31.0); Mean Corpuscular Volume 96.2 fL (78.0-98.0); Mean Platelet Volume 8.2 fL (7.4-10.4); Platelet Count 227 thou/uL (130-400); RBC Distribution Width 12.8 % (11.5-14.5); Red Blood Cell (RBC) Count 4.09 mill/uL (4.20-5.40); White Blood Cell (WBC) Count 9.9 thou/uL (4.8-10.8)
[2019-08-06 12:13] LABS: INR-International Normal Ratio 1.2; PTT 28.1 SEC (22.9-36.1); Prothrombin Time 15.1 SEC (12.0-14.7)
--- NOTE | 2019-08-06 12:18 | RAD ---
2 VIEWS RIGHT HUMERUS: Date: 08/06/19 COMPARISON: None. HISTORY: Fall with right arm pain. FINDINGS: 2 views of the right humerus show a spiral fracture of the mid portion of the humerus which extends u p to the region of the humeral neck. There is a large butterfly fragment. The fracture fragments are telescoped on themselves. IMPRESSION: Mid right humeral fracture as above. POS: [facility]
[2019-08-06 12:30] LABS: ALT (SGPT) 144 U/L (8-55); AST (SGOT) 61 U/L (5-34); Albumin 3.9 g/dL (3.4-4.8); Alkaline Phosphatase 54 U/L (40-110); Anion Gap 13 mmol/L (10-20); BUN (Urea Nitrogen) 19 mg/dL (9.8-20.1); Bilirubin, Total 0.5 mg/dL (0.2-1.2); Calc. Creatinine Clearance 0 mL/min (70-130); Calcium 9.1 mg/dL (7.8-10.44); Carbon Dioxide 26 mmol/L (23-31); Chloride 101 mmol/L (98-107); Estimated GFR-MDRD 67; Globulin 2.1 g/dL (2.4-3.5); Glucose 134 mg/dL (83-110); Sodium 136 mmol/L (136-145)
[2019-08-06] MEDS ORDERED: Morphine 4 MG/ML VIAL ONE (13:06)
[2019-08-06] MEDS ORDERED: Acetaminophen 1,000 MG in Premix Bag 1 BAG IVPB SCH (15:00)
--- NOTE | 2019-08-06 15:00 | CT ---
CT Brain WO Con: 08/06/2019 1:01 PM CLINICAL HISTORY: Fall. IMAGING TECHNIQUE: Multiple CT images were obtained of the brain without IV contrast. COMPARISON: CT brain dated 03/15/2019 FINDINGS: Infarct: No acute infarct evident. Hemorrhage: None.. Hydrocephalus: None.. Basal cisterns: Normal.. Cerebral parenchyma: Normal.. Midline shift: None.. Cerebellum: Normal. Brainstem: Normal. OTHER: Calvarium: Intact.. Visualized Paranasal sinuses: There is marked wall thickening and hyperdensity seen within the region of the sphenoid sinus. There is some slight expansion of the sinus cavity along its superior most portion underlying the sella turcica.. Extracranial soft tissues:Normal. IMPRESSION: No acute infarct, hemorrhage or hydrocephalus present. Marked wall thickening and internal hyperdensity involving the sphenoid sinuses suggests chronic sinu sitis; however, there is some expansion of the sinus cavity along the superior most portion underlying the sella turcica. Further evaluation with an MRI of the brain with contrast is elise de la fuente
[2019-08-06] MEDS ORDERED: Dextrose 50% Abboject 50 ML SYRINGE SLOW IVP PRN (15:06)
[2019-08-06] MEDS ORDERED: Promethazine HCl 25 MG/ML VIAL IM/IV PRN (15:06)
[2019-08-06] MEDS ORDERED: Dextrose 5% in Water 1,000 ML IV PRN (15:06)
[2019-08-06] MEDS ORDERED: Ondansetron PF 4 MG/2 ML Vial IVP PRN (15:06)
[2019-08-06] MEDS ORDERED: hydrALAZINE 20 MG/ML VIAL SLOW IVP PRN (15:06)
[2019-08-06] MEDS ORDERED: Cyclobenzaprine 10 MG TAB PO PRN (15:11)
[2019-08-06] MEDS ORDERED: traMADol HCl 50 MG TAB PO PRN ×2 (15:11)
--- NOTE | 2019-08-06 15:13 | RAD ---
Chest AP view INDICATION: Right arm pain status post fall COMPARISON: Prior exam dated March 15, 2019 FINDINGS: Lungs:There is worsening perihilar interstitial and airspace opacities suspicious for pulmonary edema . Cardiac silhouette:There is worsening cardiomegaly Pulmonary vasculature:There is prominent pulmonary vascular congestion. Pleural spaces:No pleural effusion or pneumothorax is demonstrated. Upper abdomen:No abnormality seen. Osseous structures: There is partial visualization of a heavily comminuted fracture involving the rig ht proximal humerus is better detailed on the right humerus radiograph dated 08/06/2019. Additional findings:There are 2 separate metallic densities overlying the right lower chest wall like ly external to the patient. IMPRESSION: Findings suggesting mild CHF. Right proximal humerus fracture.
--- NOTE | 2019-08-06 16:20 | HP ---
TRAUMA SURGEON: Dr. Mirza. CONSULTING PHYSICIAN: Dr. Mcneil. 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 The patient reported she was getting her vitals and got tripped up in a carpet subsequently falling onto her right side. She reported pain over her right proximal humerus. Denies loss of consciousness. She also does have 2 small abrasions to her nose. The patient is currently taking Eliquis for atrial fibrillation. Reports that she only has pain on her right arm. Denies neck or back pain as well. REVIEW OF SYSTEMS: All additional 10-point review of systems negative except as indicated above. PAST MEDICAL HISTORY: Atrial fibrillation, hypertension, bipolar disorder, thyroid cancer. PAST SURGICAL HISTORY: Thyroidectomy, cholecystectomy, hysterectomy, tonsillectomy and adenoidectomy. SOCIAL HISTORY: The patient lives with her at home. She denies drug or tobacco use. She does drink wine one small glass at night. She denies any chronic alcohol dependence. MEDICATIONS: 1. Norvasc. 2. Levothyroxine. 3. Atenolol. 4. Eliquis. ALLERGIES: ELIQUIS, ATROPINE, CIMETIDINE, PRADAXA, EPINEPHRINE, ERYTHROMYCIN, TAMBOCOR, ADVIL, PREVACID, METRONIDAZOLE, MACROBID, OMEPRAZOLE, PROTONIX, PENICILLIN, ACIPHEX, XARELTO AND TYLENOL. PHYSICAL EXAMINATION: VITAL SIGNS: Temperature 98.3, pulse 67, respirations 15, oxygen saturation 95% on room air, blood pressure 95/55. PRIMARY SURVEY: Airway intact. Adequate breath sounds bilaterally. 2+ pulses in the bilateral radials, femorals, and DPs bilaterally. GCS is 15. Gross motor and sensation are intact. No lacerations. Two small abrasions to the bridge of her nose. No external bleeding. SECONDARY SURVEY: HEAD: Normocephalic. No gross palpable skull deformities, atraumatic. EYES: Pupils 3 to 2, equal, round, reactive to light bilaterally. ENT: No hemotympanum. No epistaxis. No septal hematoma. Midface stable to manipulation. No blood in the oropharynx. Dentition is intact. No anterior neck injury/crepitus/tenderness. Two small abrasions to the bridge of her nose with bleeding controlled. C-SPINE: No step-offs or deformities or tenderness to the C-spine. C-collar not in place. CHEST: Nontender. No crepitus. No abrasions or ecchymosis. Equal chest movement. ABDOMEN: Soft, nontender, nondistended. PELVIS: Stable to manipulation. No abrasions or ecchymosis. RECTAL: Deferred. GENITOURINARY: Deferred. EXTREMITIES: No deformity to the right proximal humerus. No abrasions or ecchymosis noted. No bleeding noted. 2+ pulses in the bilateral radials, femorals, and DPs bilaterally. BACK/SPINE: No step-offs, deformities, or tenderness to palpation of the thoracic or lumbar spine. No abrasions or ecchymosis noted. NEUROLOGIC: 5/5 strength in bilateral information technology audit manager, plantar flexion, and dorsiflexion. Gross normal sensation x4 extremities. LABORATORY FINDINGS: White count 9.9, hemoglobin 13.4, hematocrit 39.4, platelets 227. INR 1.2. Sodium 136, potassium 4.0, chloride 101, carbon dioxide 26, BUN 19, creatinine 0.82, glucose 134, total bilirubin 0.1, AST 61, ALT 144. DIAGNOSTIC FINDINGS: X-rays of the right humerus demonstrate mid right humerus fracture as above. X-ray of the right shoulder demonstrates a proximal right humerus fracture. This is not well assessed and on this examination recommend dedicated right humerus series. CT of the brain demonstrates no acute infarct, hemorrhage, or hydrocephalus present. Marked wall thickening and internal hyperdensities involving the sphenoid sinus suggestive of chronic sinusitis. However, there is some expansion of the sinus cavity along the superior most portion underlying the sella turcica. Further evaluation with MRI of the brain with contrast is recommended. Chest x-ray demonstrates findings suggestive of mild CHF, right proximal humerus fracture. ASSESSMENT: 1. Status post mechanical fall on Eliquis. 2. Right proximal humerus fracture. 3. History of atrial fibrillation, hypertension, bipolar disorder, and thyroid cancer. PLAN: The patient will be admitted to the Trauma Service and go to the surgical floor. She will be n.p.o. after midnight in preparation to go to the OR with Dr. Mcneil in the morning. We will not give the patient further IV fluids as she received a liter in the emergency department after she became hypotensive due to morphine dosage. The patient also reports that her blood pressure has been lower since starting Norvasc. She has cut down her medication dose from b.i.d. to daily. However, she continues to be hypotensive. We will continue to hold her home antihypertensives and her Eliquis for now. We will restart home medications as clinically indicated. Postoperatively, she will work with Physical and Occupational Therapy and will likely be able to be discharged home. This patient will be discussed with Dr. Mirza after this dictation. Job ID: [id number]
[2019-08-06 17:01] VITALS: BMI 30.4
[2019-08-06] MEDS: Senokot S 8.6-50 MG TAB PO SCH (20:32)
[2019-08-06] MEDS: Divalproex Sodium 250 MG (DR) TAB PO SCH (20:33)
[2019-08-06] MEDS: Acetaminophen 1,000 MG in Premix Bag 1 BAG IVPB SCH (20:33)
[2019-08-06] MEDS: Donepezil HCl 5 MG TAB PO SCH (20:33)
[2019-08-06] MEDS: risperiDONE 1 MG TAB PO SCH (20:33)
--- NOTE | 2019-08-07 00:51 | PRG ---
DATE OF SERVICE: 08/06/2019 SUBJECTIVE: The patient remains on the surgical floor. The patient sustained a mechanical fall earlier today. The patient sustained a right proximal humerus fracture. The patient is currently sleeping, in no distress. OBJECTIVE: VITAL SIGNS: Stable, afebrile. GENERAL: The patient is resting, in no distress, LUNGS: Equal chest rise and fall. IMPRESSION: 1. Status post mechanical fall, on Eliquis. 2. Right proximal humerus fracture. 3. History of atrial fibrillation, hypertension, bipolar disorder, and thyroid cancer. PLAN: Continue n.p.o. after midnight in preparation for OR with Dr. Mcneil in the morning. Continue to hold patient's blood pressure medications since the patient's blood pressure has been slightly low. Continue to hold the patient's Eliquis for now. We will have the patient work with physical and occupational therapy postop. Job ID: [id number]
--- NOTE | 2019-08-07 01:20 | CON ---
DATE OF CONSULTATION: 08/06/2019 HISTORY OF PRESENT ILLNESS: Ms. 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 The patient tripped over a carpet and fell onto her right upper extremity. She had immediate pain in the right arm region. She is brought to the emergency room, and x-rays revealed a spiral fracture of the right proximal humeral shaft. The patient denies any neurologic complaints in the right upper extremity. PAST MEDICAL HISTORY: Medical illnesses; bipolar disorder, history of thyroid cancer, hypertension, and atrial fibrillation. PAST SURGICAL HISTORY: Thyroidectomy, cholecystectomy, hysterectomy, tonsillectomy and adenoidectomy. CURRENT MEDICATIONS: 1. Norvasc. 2. Levothyroxine. 3. Atenolol. 4. Eliquis. SOCIAL HISTORY: The patient lives at home with her . She denies drug or tobacco use. She drinks occasional wine. PHYSICAL EXAMINATION: GENERAL: The patient is a pleasant female, alert and oriented x3. Cooperative with the examination. HEENT: Shows mild bruising. Cranial nerves 2 through 12 are grossly intact. NECK: Has good range of motion without pain. BACK: Thoracic and lumbar spine are nontender to palpation. LUNGS: Clear bilaterally. HEART: Regular rate and rhythm. ABDOMEN: Soft and nontender. Bowel sounds positive. : Not done. EXTREMITIES: Unremarkable except the right upper extremity. The patient is in a splint currently. The right hand is neurovascularly intact. She is able to flex and extend all of her digits well. IMAGING DATA: X-ray shows angulated spiral fracture of the right proximal humeral shaft. IMPRESSION: 1. Fracture of the right proximal humerus. 2. Atrial fibrillation. 3. Hypertension. 4. Bipolar disorder. 5. History of thyroid cancer. PLAN: The patient will require open reduction and internal fixation of the right proximal humeral shaft. We will plan on using plate and screws. Potential risks with condition of surgery include, but are not limited to infection, bleeding, pain, damage to blood vessels or nerves, nonunion, malunion, and the patient may require additional surgery. The patient's questions were answered and agreed to the procedure and we will proceed tomorrow morning. Job ID: [id number]
[2019-08-07] MEDS: Levothyroxine Sodium 112 MCG TAB PO SCH (03:48)
[2019-08-07] MEDS: Acetaminophen 1,000 MG in Premix Bag 1 BAG IVPB SCH ×4 (03:48→23:35)
[2019-08-07] MEDS: Levothyroxine Sodium 25 MCG TAB PO SCH (03:48)
[2019-08-07 05:49] LABS: #Eosinphils 0.1 thou/uL (0.0-0.7); #Lymphocytes 1.4 thou/uL (1.20-3.40); #Monocytes 2.1 thou/uL (0.11-0.59); #Neutrophils 11.1 thou/uL (1.40-6.50); %Basophils 0.3 % (0.0-1.0); %Eosinophils 0.4 % (0.0-10.0); %Lymphocytes 9.6 % (21.0-51.0); %Monocytes 14.2 % (0.0-10.0); %Neutrophils 75.6 % (42.0-75.0); Hemoglobin 11.3 g/dL (12.0-16.0); Mean Corpuscular HGB CONC 33.9 g/dL (32.0-36.0); Mean Corpuscular Hemoglobin 33.1 pg (27.0-31.0); Mean Corpuscular Volume 97.5 fL (78.0-98.0); Mean Platelet Volume 8.1 fL (7.4-10.4); Platelet Count 224 thou/uL (130-400); RBC Distribution Width 12.6 % (11.5-14.5); Red Blood Cell (RBC) Count 3.43 mill/uL (4.20-5.40); White Blood Cell (WBC) Count 14.7 thou/uL (4.8-10.8)
[2019-08-07 06:06] LABS: Anion Gap 13 mmol/L (10-20); BUN (Urea Nitrogen) 19 mg/dL (9.8-20.1); Calc. Creatinine Clearance 95 mL/min (70-130); Calcium 8.6 mg/dL (7.8-10.44); Carbon Dioxide 22 mmol/L (23-31); Chloride 100 mmol/L (98-107); Estimated GFR-MDRD 82; Glucose 107 mg/dL (83-110); Magnesium 1.8 mg/dL (1.6-2.6); Phosphorus 3.3 mg/dL (2.3-4.7); Potassium 3.8 mmol/L (3.5-5.1); Sodium 131 mmol/L (136-145)
[2019-08-07] MEDS ORDERED: Fentanyl 100 MCG/2 ML VIAL ONE ×3 (06:22→13:10)
[2019-08-07] MEDS ORDERED: Neomycin-Polymyxin 1 ML AMP ONE (07:16)
[2019-08-07] MEDS ORDERED: Lidocaine 2% Jelly 5 ML TUBE ONE (07:26)
[2019-08-07] MEDS ORDERED: Magnesium 2 GM/50 ML 2 GM in Premix Bag 1 BAG IVPB SCH (07:30)
[2019-08-07] MEDS ORDERED: Potassium Phosphate 15 MMOL in Sodium Chloride 0.9% 250 ML 100 ML IVPB SCH (07:30)
[2019-08-07] MEDS ORDERED: Clindamycin/D5W 900 mg/50 ml Premix Bag ONE (07:57)
[2019-08-07] MEDS ORDERED: Potassium Phosphate 15 MMOL in Sodium Chloride 0.9% 250 ML 250 ML IVPB SCH (08:15)
[2019-08-07] MEDS ORDERED: PHENYLEPHRINE-NS 100 MCG/ML 10 ML SYRINGE ONE ×2 (09:19→13:56)
[2019-08-07] MEDS ORDERED: Phenylephrine HCL 10 MG/ML VIAL ONE (09:19)
[2019-08-07] MEDS: Calcium Carbonate 500 MG TAB PO SCH (10:30)
[2019-08-07] MEDS: Polyethylene Glycol 3350 17 GM Packet PO SCH (10:31)
[2019-08-07] MEDS: Divalproex Sodium 250 MG (DR) TAB PO SCH ×3 (10:31→20:57)
[2019-08-07] MEDS: Senokot S 8.6-50 MG TAB PO SCH ×2 (10:32→20:47)
[2019-08-07] MEDS ORDERED: Promethazine HCl 25 MG/ML VIAL IM PRN (10:36)
[2019-08-07] MEDS ORDERED: Promethazine HCl 25 MG/ML VIAL SLOW IVP PRN (10:36)
[2019-08-07 11:30] LABS: #Lymphocytes 1.3 thou/uL (1.20-3.40); #Monocytes 1.4 thou/uL (0.11-0.59); #Neutrophils 16.5 thou/uL (1.40-6.50); %Basophils 0.2 % (0.0-1.0); %Eosinophils 0.2 % (0.0-10.0); %Lymphocytes 6.6 % (21.0-51.0); %Monocytes 7.3 % (0.0-10.0); %Neutrophils 85.7 % (42.0-75.0); Hemoglobin 10.8 g/dL (12.0-16.0); Mean Corpuscular HGB CONC 33.6 g/dL (32.0-36.0); Mean Corpuscular Hemoglobin 32.6 pg (27.0-31.0); Mean Platelet Volume 8.4 fL (7.4-10.4); Platelet Count 233 thou/uL (130-400); RBC Distribution Width 12.8 % (11.5-14.5); Red Blood Cell (RBC) Count 3.32 mill/uL (4.20-5.40); White Blood Cell (WBC) Count 19.2 thou/uL (4.8-10.8)
[2019-08-07 11:36] LABS: INR-International Normal Ratio 1.2; Prothrombin Time 15.2 SEC (12.0-14.7)
[2019-08-07 11:48] LABS: Lactic Acid 2.9 mmol/L (0.5-2.2)
[2019-08-07 11:55] LABS: Anion Gap 13 mmol/L (10-20); BUN (Urea Nitrogen) 19 mg/dL (9.8-20.1); Calc. Creatinine Clearance 89 mL/min (70-130); Calcium 8.1 mg/dL (7.8-10.44); Carbon Dioxide 21 mmol/L (23-31); Chloride 100 mmol/L (98-107); Estimated GFR-MDRD 77; Glucose 168 mg/dL (83-110); Magnesium 1.7 mg/dL (1.6-2.6); Phosphorus 4.1 mg/dL (2.3-4.7); Potassium 4.2 mmol/L (3.5-5.1); Sodium 130 mmol/L (136-145)
[2019-08-07] MEDS ORDERED: Calcium Chloride 1 GM/10 ML Abboject SYRINGE IVP SCH (12:00)
[2019-08-07] MEDS ORDERED: Acetaminophen 500 MG TAB PO SCH (12:00)
--- NOTE | 2019-08-07 12:09 | RAD ---
2 VIEWS RIGHT HUMERUS: Date: 08/07/19 COMPARISON: 08/06/19. HISTORY: Humeral fracture. FINDINGS/IMPRESSION: Limited intraoperative fluoroscopic views of the right humerus was submitted for interpretation. The patient is status post plate and screw fixation of the fracture of the right humerus. Better alignmen t of the fracture is seen. No perihardware lucency is present. POS: [facility]
[2019-08-07] MEDS ORDERED: Norepinephrine 8 MG/0.9% NS 250 ML IVPB SCH (12:30)
[2019-08-07] MEDS ORDERED: Sodium Chloride 0.9% 30 ML ONE (12:32)
[2019-08-07] MEDS ORDERED: Norepinephrine 8 MG in Dextrose 5% in Water 242 ML IVPB PRN (12:34)
[2019-08-07] MEDS ORDERED: Lidocaine 1% PF 5 ML VIAL ONE (13:56)
[2019-08-07] MEDS ORDERED: PROPOFOL 200 MG/20 ML VIAL ONE (13:56)
[2019-08-07] MEDS ORDERED: Ketorolac Tromethamine 30 MG/ML VIAL ONE (13:56)
[2019-08-07] MEDS ORDERED: Rocuronium Bromide 10 MG/ML (10ML VIAL) ONE (13:56)
[2019-08-07] MEDS ORDERED: Ondansetron PF 4 MG/2 ML Vial ONE (13:56)
[2019-08-07] MEDS ORDERED: Esmolol 100 MG/10 ML VIAL ONE (13:56)
[2019-08-07] MEDS ORDERED: Glycopyrrolate 0.2 MG/ML 5 ML SYRINGE ONE (13:56)
[2019-08-07] MEDS ORDERED: Dexamethasone 20 MG/5 ML VIAL ONE (13:56)
[2019-08-07] MEDS ORDERED: ePHEDrine 50 MG/ML VIAL ONE (13:56)
[2019-08-07] MEDS ORDERED: Hydrocortisone Sod Succ/PF 100 mg/2 ml Vial IVP SCH (14:00)
[2019-08-07] MEDS: risperiDONE 1 MG TAB PO SCH ×2 (14:29→20:47)
[2019-08-07] MEDS: Sodium Bicarbonate 150 MEQ in Dextrose 5% in Water 1,000 ML IV SCH ×2 (14:56→22:30)
--- NOTE | 2019-08-07 14:59 | RAD ---
CHEST 1 VIEW: INDICATION: History of subclavian line placement. COMPARISON: Prior exam performed on 08/06/2019 at 2:49 p.m. IMPRESSION: There has been interval placement of a left subclavian central venous catheter. No definite pneumoth orax is evident. Cardiomegaly with pulmonary vascular congestion persists. There has been interval operative repair of the proximal right humerus fracture. POS: [facility]
[2019-08-07] MEDS: Fentanyl 100 MCG/2 ML VIAL SLOW IVP PRN ×2 (15:00→23:55)
--- NOTE | 2019-08-07 15:45 | PRG ---
DATE OF SERVICE: 08/07/2019 SUBJECTIVE: The patient was seen this morning and evaluated in the PACU postop after fixation of a right proximal humerus fracture. At the time of my evaluation, Anesthesia reported the patient was hypotensive postoperatively. She had 800 mL of blood loss reported by Orthopedic Surgery. Elliott had not been placed, and there was no urinary output documented. She was receiving blood products at the time of my evaluation. She received a total of 5 units of packed red blood cells and 2.5 L of IV crystalloid with minimal improvement in her blood pressure. She was on a phenylephrine drip at that time, but was transitioned to a Levo drip after appropriated volume resuscitation. A left-sided subclavian was placed by Anesthesia in the PACU. Levo was started and phenylephrine was discontinued. She was transferred to the CCU. Chest x-ray was completed upon her arrival. The patient also received IV calcium and IV hydrocortisone. Cortisol level demonstrated the patient has acute adrenal insufficiency as well. 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 We will continue to hold her beta blockers and home antihypertensive medications. An echo was pending. OBJECTIVE: VITAL SIGNS: Temperature 99.7, respirations 16, oxygen saturation 100% on room air, blood pressure 124/70, heart rate 97. GENERAL: Elderly female, lying in bed with no signs of acute distress. PULMONARY: Equal chest rise and fall. Clear breath sounds bilaterally. No signs of acute respiratory distress. CARDIAC: Irregular rate and rhythm. No murmurs, gallops, or rubs. GI: Abdomen is soft, nontender, nondistended. EXTREMITIES: Surgical wound over the right humerus and shoulder is clean, dry, and intact with a sling in place. 2+ pulses in all extremities. No significant swelling noted. Gross motor and sensation are intact. NEUROLOGIC: GCS is 15. LABORATORY FINDINGS: Blood work completed in the PACU postoperatively demonstrated a white count of 19.2, hemoglobin of 10.9, hematocrit 32.2, platelets 233. INR 1.2. Sodium 130, potassium 4.2, chloride 100, carbon dioxide 21, BUN 19, creatinine 0.73, glucose 162, lactic acid 2.9, phosphorus 4.1, magnesium 1.9. Cortisol 18.3. DIAGNOSTIC FINDINGS: Postop chest x-ray demonstrated there has been interval placement of a left subclavian central line catheter. No definite pneumothorax is evident. Cardiomegaly with pulmonary vascular congestion persists. There has been interval operative repair of the proximal right humerus fracture. ASSESSMENT: 1. Status post mechanical fall from standing. 2. Right proximal humerus fracture, status post repair. 3. History of atrial fibrillation, hypertension, bipolar disorder, and thyroid cancer. 4. Acute blood loss anemia. 5. Acute hemorrhagic shock, improved. 6. Acute adrenal insufficiency. 7. Hypokalemia, hypophosphatemia, and hypomagnesemia. 8. Persistent hypotension, present on admission. PLAN: The patient will be transferred from the PACU to the CCU where she will be on a Levophed drip. We will closely continue to monitor the patient's urinary output. She will be on a bicarb drip at 120 an hour, and we will continue this until she is reassessed tomorrow. An echo is pending at this time. She will receive 100 mg of hydrocortisone IV x1 followed by 50 q.6 hours. We will closely monitor the patient's urinary output, goal is 45 mL/h. Mean arterial pressure goal is greater than or equal to 65. The patient will not work with Physical Therapy today, but will likely start tomorrow when she is hemodynamically stable. Continue to hold the patient's home antihypertensives and beta blockers. The patient was seen and examined by myself in the PACU, and then she was seen and examined again by myself and Dr. Mirza in the CCU postoperatively. Job ID: [id number]
[2019-08-07 17:52] LABS: #Lymphocytes 0.8 thou/uL (1.20-3.40); #Neutrophils 16.7 thou/uL (1.40-6.50); %Basophils 0.1 % (0.0-1.0); %Eosinophils 0.1 % (0.0-10.0); %Lymphocytes 3.8 % (21.0-51.0); %Monocytes 10.4 % (0.0-10.0); %Neutrophils 85.5 % (42.0-75.0); Hemoglobin 12.3 g/dL (12.0-16.0); Mean Corpuscular HGB CONC 34.4 g/dL (32.0-36.0); Mean Corpuscular Hemoglobin 31.8 pg (27.0-31.0); Mean Corpuscular Volume 92.4 fL (78.0-98.0); Mean Platelet Volume 8.2 fL (7.4-10.4); Platelet Count 205 thou/uL (130-400); RBC Distribution Width 14.3 % (11.5-14.5); Red Blood Cell (RBC) Count 3.88 mill/uL (4.20-5.40); White Blood Cell (WBC) Count 19.5 thou/uL (4.8-10.8)
--- NOTE | 2019-08-07 17:52 | OP ---
DATE OF PROCEDURE: 08/07/2019 PREOPERATIVE DIAGNOSIS: Comminuted right proximal humerus fracture including the humeral head and into the metaphyseal diaphyseal region. POSTOPERATIVE DIAGNOSIS: Comminuted right proximal humerus fracture including the humeral head and into the metaphyseal diaphyseal region. PROCEDURE PERFORMED: Open reduction and internal fixation of the right proximal humerus. ANESTHESIA: General. TECHNIQUE: The patient was given preoperative IV antibiotics, taken to the operating room, placed in supine position. Satisfactory general anesthesia was performed. The patient was then placed in a semi-beach chair position. The right shoulder and upper extremity were sterilely prepped and draped in usual fashion. A longitudinal incision was made from just below the clavicle down to the mid arm region. The deltopectoral interval was located and divided, and the proximal humeral shaft which had a spiral fracture with a butterfly fragment. The spiral fracture was held reduced with a bone clamp and internally fixed using two 3.5 cortical screws in a lag fashion. A 3.5 mm Synthes LCP plate 6-hole was then placed over the anterior aspect of the proximal humerus with the locking proximal portion over the humeral head and rest of the plate down the anterior shaft. Initially, it was internally fixed using 3.5 cortical screw holding the plate to the shaft, and then 3.5 locking screws were placed into the humeral head and into the shaft. This was all performed under fluoroscopic visualization and showed good reduction and good stability of the proximal humerus fractures. The wound was then copiously irrigated with antibiotic solution. The fascia was closed using #1 Vicryl with interrupted simple sutures, and the subcutaneous tissue was closed with 0 Vicryl, and skin was closed with skin patrica. Sterile dressing was applied. The patient was awakened, extubated, and transferred to recovery room in stable condition. ESTIMATED BLOOD LOSS: 800 mL. COMPLICATIONS: None. The patient was started on 1 unit of blood. Job ID: [id number]
[2019-08-07] MEDS: Hydrocortisone Sod Succ/PF 100 mg/2 ml Vial IVP SCH (20:47)
[2019-08-07] MEDS: Donepezil HCl 5 MG TAB PO SCH (20:52)
--- NOTE | 2019-08-07 23:49 | PRG ---
DATE OF SERVICE: SUBJECTIVE: This is a 78-year-old female, status post open reduction and internal fixation of right proximal humerus fracture. The patient was hypotensive postop and was moved to the critical care unit. The patient is currently awake, alert, in no distress. The patient reports that her pain is well controlled at this time. The patient's urinary output has started to get increase. The patient remains on Levophed drip at 3 mcg/min. OBJECTIVE: VITAL SIGNS: Stable, afebrile. GENERAL: Elderly female, lying in hospital bed, in no acute distress. PULMONARY: Equal chest rise and fall, clear breath sounds bilaterally. No signs of acute respiratory distress. CARDIAC: Irregularly irregular rhythm. ABDOMEN: Soft, nontender, and nondistended. EXTREMITIES: Moves all extremities. 2+ pulses in all extremities. Surgical wound dressing over right humerus and shoulder. Dressing is clean, dry, and intact with a sling in place. DIAGNOSTIC DATA: Echocardiogram; impression, ejection fraction is visually estimated at 55% to 60%, left ventricle size is normal, left atrium is normal. There is mild pulmonic regurgitation present. ASSESSMENT: 1. Status post mechanical fall from standing. 2. Right proximal humerus fracture, status post repair. 3. History of atrial fibrillation, hypertension, bipolar disorder, and thyroid cancer. 4. Acute blood loss anemia. 5. Acute hemorrhagic shock, improved. 6. Acute adrenal insufficiency. 7. Hypokalemia, hypophosphatemia, and hypomagnesemia. 8. Persistent hypotension present on admission. PLAN: Continue Levophed drip and continue to monitor urinary output closely. Continue bicarb drip at 120 mL/hr. Continue to hold the patient's home antihypertensive medications, beta-blockers and Eliquis. Job ID: [id number] [facility]
[2019-08-08] MEDS ORDERED: Sodium Chloride 0.9% 500 ML IV SCH (02:45)
[2019-08-08] MEDS: Hydrocortisone Sod Succ/PF 100 mg/2 ml Vial IVP SCH ×4 (02:56→20:52)
[2019-08-08 04:48] LABS: Lactic Acid 2.9 mmol/L (0.5-2.2)
[2019-08-08 05:01] LABS: Anion Gap 13 mmol/L (10-20); BUN (Urea Nitrogen) 23 mg/dL (9.8-20.1); Calc. Creatinine Clearance 87 mL/min (70-130); Calcium 7.8 mg/dL (7.8-10.44); Carbon Dioxide 28 mmol/L (23-31); Chloride 94 mmol/L (98-107); Estimated GFR-MDRD 69; Glucose 179 mg/dL (83-110); Magnesium 1.5 mg/dL (1.6-2.6); Potassium 4.3 mmol/L (3.5-5.1); Sodium 131 mmol/L (136-145)
[2019-08-08 05:41] LABS: Band 9 % (5-11); Hemoglobin 10.5 g/dL (12.0-16.0); Lymphocytes 14 % (21-51); MDiff Complete? YES; Mean Corpuscular HGB CONC 35.4 g/dL (32.0-36.0); Mean Corpuscular Hemoglobin 33.1 pg (27.0-31.0); Mean Corpuscular Volume 93.5 fL (78.0-98.0); Mean Platelet Volume 8.7 fL (7.4-10.4); Monocytes 9 % (0-10); Neutrophil 68 % (42-75); Platelet Count 174 thou/uL (130-400); RBC Distribution Width 14.3 % (11.5-14.5); Red Blood Cell (RBC) Count 3.17 mill/uL (4.20-5.40); White Blood Cell (WBC) Count 13.5 thou/uL (4.8-10.8)
[2019-08-08] MEDS ORDERED: Magnesium 2 GM/50 ML 2 GM in Premix Bag 1 BAG IVPB SCH (05:45)
[2019-08-08] MEDS ORDERED: Sodium Chloride 0.9% 500 ML IVPB SCH (05:45)
[2019-08-08] MEDS: Levothyroxine Sodium 112 MCG TAB PO SCH (05:57)
[2019-08-08] MEDS: Levothyroxine Sodium 25 MCG TAB PO SCH (05:57)
[2019-08-08] MEDS: Acetaminophen 1,000 MG in Premix Bag 1 BAG IVPB SCH (05:57)
[2019-08-08] MEDS: Sodium Bicarbonate 150 MEQ in Dextrose 5% in Water 1,000 ML IV SCH (08:11)
[2019-08-08] MEDS: Calcium Carbonate 500 MG TAB PO SCH (08:23)
[2019-08-08] MEDS: Senokot S 8.6-50 MG TAB PO SCH ×2 (08:23→20:53)
[2019-08-08] MEDS: Polyethylene Glycol 3350 17 GM Packet PO SCH (08:23)
[2019-08-08] MEDS: Divalproex Sodium 250 MG (DR) TAB PO SCH ×3 (08:26→20:53)
[2019-08-08] MEDS: Midodrine HCl 5 MG TAB PO SCH ×3 (09:23→20:53)
[2019-08-08] MEDS: Acetaminophen 500 MG TAB PO SCH ×3 (12:09→20:52)
[2019-08-08] MEDS: risperiDONE 1 MG TAB PO SCH ×2 (12:10→20:53)
--- NOTE | 2019-08-08 12:12 | PRG ---
DATE OF SERVICE: 08/08/2019 SUBJECTIVE: Ms. Jernigan is a 78-year-old woman, who is postoperative day #1, status post open reduction and internal fixation of right proximal humerus fracture. The patient experienced large volume blood loss estimated at 800 mL yesterday. The patient was on Eliquis prior to her fall. She required transfusion of blood products yesterday postoperatively to treat the acute preoperative hemorrhagic shock. Overnight, she had moment of oliguria, which was resolved with increasing total fluid intake intravenously. This morning, she is awake and alert with a [place] Coma Scale of 15. She reports adequate pain control. Urinary output has now improved to approximately 0.5 mL/kg/h over the last 4 hours. She has no neurologic deficits. OBJECTIVE: VITAL SIGNS: Include blood pressure is 104/61, pulse is 69, respiratory rate is 14, temperature is 97.9 degrees Fahrenheit, and oxygen saturation is 97% on 2 L by nasal cannula oxygen. She had episode of orthostatic hypotension this morning when she was out of bed. Systolic blood pressure dipped to low 70s. HEART: Reveals regular rate and rhythm. No murmurs or gallops auscultated. LUNGS: Clear to auscultation bilaterally. Her breathing, regular and unlabored. ABDOMEN: Soft, nontender, and nondistended. NEUROLOGIC: Reveals no focal deficits present. LABORATORY FINDINGS: Today includes a CBC with 13,500 white blood cells, hemoglobin and hematocrit 10.5 and 29.6 respectively, this is after the patient had received a total of 1 L of crystalloids overnight. Platelet count today is 174,000. Metabolic profile; sodium 131, potassium 4.3, chloride is 94, bicarb is 28, BUN 23, creatinine 0.80, glucose 179, magnesium 1.5, and phosphorus is 4.0. IMPRESSION: 1. Postoperative day #1, status post open reduction and internal fixation of right proximal humerus fracture. 2. Acute blood loss anemia, stable. 3. Acute hyponatremia. 4. Acute hypomagnesemia. 5. Orthostatic hypotension. PLAN: 1. Correct abnormal electrolytes. 2. The patient will be started on midodrine to treat the orthostatic hypotension. 3. We will increase activity per Physical and Occupational Therapy. 4. We will anticipate transfer of the patient to the general surgical floor if she remains stable in the next 4 hours, especially with no recurrent orthostatic hypotension. Above findings and plan discussed with the patient, who indicates understanding of information given. I have answered her questions. Job ID: [id number]
[2019-08-08] MEDS: Donepezil HCl 5 MG TAB PO SCH (20:53)
--- NOTE | 2019-08-08 23:00 | PRG ---
DATE OF SERVICE: 08/08/2019 SUBJECTIVE: This is a 78-year-old woman, postop day #1, status post open reduction and internal fixation of right proximal humerus fracture. The patient was moved from the critical care unit today to the surgical floor. The patient has had adequate urinary output. The patient reports that her pain is well controlled at this time. The patient continues to tolerate a regular diet at this time. The patient reports not having a bowel movement, but is passing flatus. The patient did have an episode of hypotension when she first got out of bed this morning. OBJECTIVE: VITAL SIGNS: Stable, afebrile. HEENT: Head is atraumatic and normocephalic. RESPIRATORY: Equal chest rise and fall, no respiratory distress. EXTREMITIES: Moves all extremities. Positive distal pulses. Splint in place to right upper extremity with sling in place. IMPRESSION: 1. Status post operative day #1 status post open reduction and internal fixation of right proximal humerus fracture. 2. Acute blood loss anemia, stable. 3. Acute hyponatremia. 4. Acute hypomagnesemia. 5. Orthostatic hypotension. PLAN: Continue supportive care and pain regimen. Continue midodrine to treat orthostatic hypotension. Continue to hold Eliquis. Continue to increase physical and occupational therapy. Job ID: [id number] [facility]
[2019-08-09] MEDS: Hydrocortisone Sod Succ/PF 100 mg/2 ml Vial IVP SCH ×4 (02:53→19:50)
[2019-08-09] MEDS: Acetaminophen 500 MG TAB PO SCH ×4 (02:54→21:31)
[2019-08-09 03:29] LABS: #Lymphocytes 1.5 thou/uL (1.20-3.40); #Monocytes 1.8 thou/uL (0.11-0.59); #Neutrophils 12.1 thou/uL (1.40-6.50); %Basophils 0.2 % (0.0-1.0); %Eosinophils 0.1 % (0.0-10.0); %Monocytes 11.5 % (0.0-10.0); %Neutrophils 78.2 % (42.0-75.0); Hemoglobin 9.8 g/dL (12.0-16.0); Mean Corpuscular HGB CONC 34.8 g/dL (32.0-36.0); Mean Corpuscular Hemoglobin 32.9 pg (27.0-31.0); Mean Corpuscular Volume 94.4 fL (78.0-98.0); Mean Platelet Volume 8.5 fL (7.4-10.4); Platelet Count 184 thou/uL (130-400); RBC Distribution Width 13.9 % (11.5-14.5); Red Blood Cell (RBC) Count 2.97 mill/uL (4.20-5.40); White Blood Cell (WBC) Count 15.4 thou/uL (4.8-10.8)
[2019-08-09 03:49] LABS: Anion Gap 13 mmol/L (10-20); BUN (Urea Nitrogen) 19 mg/dL (9.8-20.1); Calc. Creatinine Clearance 95 mL/min (70-130); Carbon Dioxide 30 mmol/L (23-31); Chloride 92 mmol/L (98-107); Estimated GFR-MDRD 76; Glucose 137 mg/dL (83-110); Magnesium 1.8 mg/dL (1.6-2.6); Phosphorus 3.5 mg/dL (2.3-4.7); Potassium 4.1 mmol/L (3.5-5.1); Sodium 131 mmol/L (136-145)
[2019-08-09] MEDS: Levothyroxine Sodium 25 MCG TAB PO SCH (06:52)
[2019-08-09] MEDS: Levothyroxine Sodium 112 MCG TAB PO SCH (06:52)
[2019-08-09] MEDS ORDERED: Magnesium 2 GM/50 ML 2 GM in Premix Bag 1 BAG IVPB SCH (07:30)
[2019-08-09] MEDS ORDERED: PHOS-NAK 1 PKT PACK PO SCH (07:30)
[2019-08-09] MEDS: Calcium Carbonate 500 MG TAB PO SCH (08:38)
[2019-08-09] MEDS: Divalproex Sodium 250 MG (DR) TAB PO SCH ×3 (08:39→21:33)
--- NOTE | 2019-08-09 08:39 | PRG ---
DATE OF SERVICE: 08/09/2019 SUBJECTIVE: The patient is resting comfortably. She has good pain control. OBJECTIVE: VITAL SIGNS: The patient has been afebrile/vital sign shows pulse 99, respiratory rate 17, blood pressure 128/83. LABORATORY DATA: CBC shows white count 15.4, hemoglobin 9.9, hematocrit 28. Chemistries; sodium is mildly low at 131. Remaining values were normal. ASSESSMENT AND PLAN: The patient will have a dressing change. She will continue to work with therapy to become more independent as far as getting in and out of bed. She knows she cannot use her right upper extremity. She needs to allow the fracture to heal. When she is discharged, she will follow up in my office in a week to week and a half. Job ID: [id number]
[2019-08-09] MEDS: Senokot S 8.6-50 MG TAB PO SCH ×2 (08:40→21:34)
[2019-08-09] MEDS: Polyethylene Glycol 3350 17 GM Packet PO SCH (08:41)
[2019-08-09] MEDS ORDERED: Atenolol 50 MG TAB PO SCH (09:00)
[2019-08-09 10:13] LABS: Bacteria/HPF 3+ HPF (None Seen); Bilirubin Negative (Negative); Blood, Urine Negative (Negative); Clarity Turbid (Clear); Glucose, Urine (Dipstick) Normal (Negative); Leukocyte 500 Leu/uL (Negative); Nitrite Negative (Negative); Protein, Urine (Dipstick) Negative (Neg-Trace); RBC/HPF 0-3 HPF (0-3); Urobilinogen Normal mg/dL (Less than 2); WBC/HPF Greater than 50 HPF (0-3)
[2019-08-09 10:14] LABS: Urine Culture Reflex No No
[2019-08-09] MEDS: Midodrine HCl 5 MG TAB PO SCH ×3 (10:16→21:34)
--- NOTE | 2019-08-09 12:45 | PRG ---
DATE OF SERVICE: 08/08/2019 SUBJECTIVE: Ms. Jernigan postoperative day #1 from [facility] right proximal humerus fracture. The patient was placed in Job ID: [id number]
[2019-08-09] MEDS: risperiDONE 1 MG TAB PO SCH ×2 (12:59→21:31)
--- NOTE | 2019-08-09 15:37 | PRG ---
DATE OF SERVICE: 08/09/2019 SUBJECTIVE: The patient was seen this morning sitting up in bed with no signs of acute distress. She had no acute events overnight. Reported her pain was well controlled. Tolerating a regular diet, voiding without difficulties. She has not had a bowel movement, but reports that she feels like she will have one soon. OBJECTIVE: VITAL SIGNS: Temperature 98.7, pulse 91, respirations 16, oxygen saturation 92% on room air, blood pressure 118/76. GENERAL: Well-appearing elderly female, sitting up in bed with no signs of acute distress. PULMONARY: Equal chest rise and fall. Clear breath sounds bilaterally. No signs of acute respiratory distress. CARDIAC: Regular rate and rhythm. No murmurs, gallops, or rubs. GI: Abdomen is soft, nontender, nondistended. EXTREMITIES: 2+ pulses in all extremities. No significant swelling noted. Gross motor and sensation are intact. Right upper extremity with dressing that is in place, clean, dry, intact, and in a splint. NEUROLOGIC: GCS is 15. LABORATORY FINDINGS: White count 15.4, hemoglobin 9.8, hematocrit 28.0, platelets 184. Sodium 131, potassium 4.1, chloride 92, carbon dioxide 30, BUN 19, creatinine 0.74, glucose 137, phosphorus 3.8, magnesium 1.8. DIAGNOSTIC FINDINGS: There are no new diagnostic findings to report. ASSESSMENT: 1. Mechanical fall, on Eliquis. 2. Right proximal humerus fracture, status post repair. 3. Acute blood loss anemia, stable. 4. Postoperative hemorrhagic shock, resolved. 5. Orthostatic hypertension, improved. 6. History of atrial fibrillation, hypertension, bipolar disorder, and thyroid cancer. 7. Hypophosphatemia. 8. Hypomagnesemia. PLAN: We will continue the patient on her current diet and pain regimen. Continue midodrine. We will not start her home antihypertensives or beta blockers today, but we will continue to monitor her rate and consider starting atenolol if she needs further rate control. The patient will continue to work with Physical and Occupational Therapy, who have recommended discharge to an acute rehab facility. The patient is amenable to this plan. We will replace the patient's phosphorus and magnesium today. The patient is ready for discharge at this time and she is pending approval and placement at acute rehab facility. The patient was discussed with Dr. Mirza before this dictation. Job ID: [id number]
[2019-08-09] MEDS: Donepezil HCl 5 MG TAB PO SCH (21:31)
[2019-08-09] MEDS: Cipro 250 MG TAB PO SCH (21:31)
[2019-08-09] MEDS: Hydrocortisone 10 mg Tablet PO SCH (21:33)
--- NOTE | 2019-08-09 21:48 | PRG ---
DATE OF SERVICE: 08/09/2019 SUBJECTIVE: The patient remains on the surgical floor, resting comfortably in bed, in no acute distress. The patient denies any pain at this time. The patient states she was able to walk with Physical Therapy today. The patient continues to tolerate a regular diet. The patient did have some strong smelling urine overnight per nurse. Urinalysis was obtained. The patient denies any dysuria. The patient remains afebrile. OBJECTIVE: VITAL SIGNS: Stable. GENERAL: Elderly female, well-appearing, lying in hospital bed, in no distress. PULMONARY: Bilateral breath sounds, equal and nonlabored. GI: Abdomen is soft, nontender, and nondistended. EXTREMITIES: Moves all extremities. 2+ pulses in all extremities. Right upper extremity dressing clean, dry, and in place and right upper extremity sling in place. NEUROLOGIC: GCS 15. LABORATORY DATA: Urinalysis positive for leukocyte esterase, wbc's greater than 50, squamous epithelial cells, 3+ bacteria. Negative nitrites. ASSESSMENT: 1. Mechanical fall on Eliquis. 2. Right proximal humerus fracture, status post repair. 3. Acute blood loss anemia, stable. 4. Postop hemorrhagic shock, resolved. 5. Orthostatic hypotension, improved. 6. Urinary tract infection. 7. History of atrial fibrillation, hypertension, bipolar disorder, thyroid cancer, hypophosphatemia, hypomagnesemia. PLAN: Continue current diet and pain regimen. We will obtain urine culture and start patient on antibiotics for UTI. We will continue to have patient work with Physical and Occupational Therapy. The patient is pending inpatient rehab placement. The plan was discussed with the patient, who agrees. Job ID: [id number] [facility]
[2019-08-10] MEDS: Acetaminophen 500 MG TAB PO SCH ×4 (03:34→20:54)
[2019-08-10 04:25] LABS: #Eosinphils 0.1 thou/uL (0.0-0.7); #Lymphocytes 1.5 thou/uL (1.20-3.40); #Monocytes 1.5 thou/uL (0.11-0.59); #Neutrophils 11.6 thou/uL (1.40-6.50); %Eosinophils 0.4 % (0.0-10.0); %Lymphocytes 10.2 % (21.0-51.0); %Monocytes 10.1 % (0.0-10.0); %Neutrophils 79.3 % (42.0-75.0); Hemoglobin 9.5 g/dL (12.0-16.0); Mean Corpuscular HGB CONC 33.7 g/dL (32.0-36.0); Mean Corpuscular Hemoglobin 32.2 pg (27.0-31.0); Mean Corpuscular Volume 95.5 fL (78.0-98.0); Mean Platelet Volume 8.5 fL (7.4-10.4); Platelet Count 205 thou/uL (130-400); RBC Distribution Width 13.9 % (11.5-14.5); Red Blood Cell (RBC) Count 2.94 mill/uL (4.20-5.40); White Blood Cell (WBC) Count 14.6 thou/uL (4.8-10.8)
[2019-08-10 04:45] LABS: Anion Gap 12 mmol/L (10-20); BUN (Urea Nitrogen) 13 mg/dL (9.8-20.1); Calc. Creatinine Clearance 101 mL/min (70-130); Calcium 8.4 mg/dL (7.8-10.44); Carbon Dioxide 29 mmol/L (23-31); Chloride 94 mmol/L (98-107); Estimated GFR-MDRD 82; Glucose 139 mg/dL (83-110); Magnesium 1.9 mg/dL (1.6-2.6); Potassium 3.4 mmol/L (3.5-5.1); Sodium 132 mmol/L (136-145)
[2019-08-10] MEDS: Levothyroxine Sodium 25 MCG TAB PO SCH (06:50)
[2019-08-10] MEDS: Levothyroxine Sodium 112 MCG TAB PO SCH (06:50)
[2019-08-10] MEDS ORDERED: Magnesium 2 GM/50 ML 2 GM in Premix Bag 1 BAG IVPB SCH (07:45)
[2019-08-10] MEDS ORDERED: Potassium Phosphate 30 MMOL in Sodium Chloride 0.9% 500 ML IVPB SCH (09:00)
[2019-08-10] MEDS: Hydrocortisone 10 mg Tablet PO SCH ×2 (09:09→20:55)
[2019-08-10] MEDS: Divalproex Sodium 250 MG (DR) TAB PO SCH ×3 (09:09→20:57)
[2019-08-10] MEDS: Senokot S 8.6-50 MG TAB PO SCH ×2 (09:09→20:58)
[2019-08-10] MEDS: Calcium Carbonate 500 MG TAB PO SCH (09:09)
[2019-08-10] MEDS: Midodrine HCl 5 MG TAB PO SCH ×3 (09:10→20:56)
[2019-08-10] MEDS: Polyethylene Glycol 3350 17 GM Packet PO SCH (09:10)
[2019-08-10] MEDS ORDERED: Potassium Phosphate 30 MMOL in Sodium Chloride 0.9% 250 ML 250 ML IVPB SCH (09:15)
[2019-08-10] MEDS: Cipro 250 MG TAB PO SCH ×2 (11:17→21:00)
[2019-08-10] MEDS: risperiDONE 1 MG TAB PO SCH ×2 (11:18→20:56)
[2019-08-10] MEDS: Apixaban 5 MG TAB PO SCH (20:55)
[2019-08-10] MEDS: Donepezil HCl 5 MG TAB PO SCH (20:55)
--- NOTE | 2019-08-10 22:27 | PRG ---
DATE OF SERVICE: 08/10/2019 SUBJECTIVE: The patient remains on the surgical floor. The patient is resting comfortably in bed. The patient voices no concerns at this time. The patient states she was able to work with Physical Therapy very well today, also states she walked 300 feet. The patient continues to tolerate a regular diet. OBJECTIVE: VITAL SIGNS: Stable, afebrile. GENERAL: Elderly female, well appearing, lying in hospital bed, in no acute distress. PULMONARY: Bilateral breath sounds equal, respirations even and unlabored. EXTREMITIES: Moves all extremities. 2+ pulses in all extremities. Right upper extremity dressing clean, dry, and intact. Right upper extremity in sling. NEUROLOGIC: GCS 15. ASSESSMENT: 1. Status post mechanical fall, on Eliquis. 2. Right proximal humerus fracture, status post repair. 3. Acute blood loss anemia, stable. 4. Postop hemorrhagic shock, resolved. 5. Orthostatic hypotension, improved. 6. Urinary tract infection. 7. History of atrial fibrillation, hypertension, bipolar disorder, thyroid cancer. PLAN: Continue current diet and pain regimen. Continue p.o. antibiotics for UTI. Continue to have the patient work with Physical And Occupational Therapy. The patient is pending placement to inpatient rehab. The patient's left subclavian central line will be discontinued this evening after her electrolytes have been replaced IV. The patient will then have her Eliquis restarted this evening. The plan was discussed with the patient, who agrees. Job ID: [id number]
[2019-08-11] MEDS: Acetaminophen 500 MG TAB PO SCH ×3 (03:12→15:01)
[2019-08-11 04:36] LABS: #Lymphocytes 1.7 thou/uL (1.20-3.40); #Monocytes 1.3 thou/uL (0.11-0.59); #Neutrophils 8.7 thou/uL (1.40-6.50); %Basophils 0.3 % (0.0-1.0); %Eosinophils 0.3 % (0.0-10.0); %Lymphocytes 14.2 % (21.0-51.0); %Monocytes 11.1 % (0.0-10.0); %Neutrophils 74.1 % (42.0-75.0); Hemoglobin 9.1 g/dL (12.0-16.0); Mean Corpuscular HGB CONC 34.2 g/dL (32.0-36.0); Mean Corpuscular Volume 96.3 fL (78.0-98.0); Mean Platelet Volume 7.5 fL (7.4-10.4); Platelet Count 231 thou/uL (130-400); RBC Distribution Width 14.1 % (11.5-14.5); Red Blood Cell (RBC) Count 2.75 mill/uL (4.20-5.40); White Blood Cell (WBC) Count 11.7 thou/uL (4.8-10.8)
[2019-08-11] MEDS: Levothyroxine Sodium 25 MCG TAB PO SCH (05:14)
[2019-08-11] MEDS: Levothyroxine Sodium 112 MCG TAB PO SCH (05:14)
[2019-08-11 05:22] LABS: Anion Gap 12 mmol/L (10-20); BUN (Urea Nitrogen) 13 mg/dL (9.8-20.1); Calc. Creatinine Clearance 101 mL/min (70-130); Carbon Dioxide 30 mmol/L (23-31); Chloride 98 mmol/L (98-107); Estimated GFR-MDRD 82; Glucose 122 mg/dL (83-110); Magnesium 1.9 mg/dL (1.6-2.6); Phosphorus 3.7 mg/dL (2.3-4.7); Potassium 3.6 mmol/L (3.5-5.1); Sodium 136 mmol/L (136-145)
[2019-08-11] MEDS ORDERED: Magnesium 2 GM/50 ML 2 GM in Premix Bag 1 BAG IVPB SCH (07:45)
[2019-08-11] MEDS ORDERED: Potassium Phosphate 15 MMOL in Sodium Chloride 0.9% 100 ML IVPB SCH (07:45)
[2019-08-11] MEDS: Hydrocortisone 10 mg Tablet PO SCH (08:24)
[2019-08-11] MEDS: Polyethylene Glycol 3350 17 GM Packet PO SCH (08:30)
[2019-08-11] MEDS: Calcium Carbonate 500 MG TAB PO SCH (08:33)
[2019-08-11] MEDS: Apixaban 5 MG TAB PO SCH (08:33)
[2019-08-11] MEDS: Senokot S 8.6-50 MG TAB PO SCH (08:34)
[2019-08-11] MEDS: Divalproex Sodium 250 MG (DR) TAB PO SCH (08:34)
[2019-08-11] MEDS: Midodrine HCl 5 MG TAB PO SCH ×2 (08:35→14:45)
[2019-08-11] MEDS: Cipro 250 MG TAB PO SCH (10:22)
[2019-08-11] MEDS ORDERED: PHOS-NAK 1 PKT PACK PO SCH (10:45)
[2019-08-11] MEDS ORDERED: Potassium Chloride 20 MEQ TAB PO SCH (10:45)
[2019-08-11 11:40] VITALS: BP 132/90; TEMP 97.5
--- NOTE | 2019-08-11 11:42 | PRG ---
DATE OF SERVICE: 08/10/2019 SUBJECTIVE: The patient was seen this morning, sitting up at edge of bed, having breakfast. She reported her pain is well controlled and she is feeling even better today than she did yesterday. She had no complaints at the time of my evaluation. OBJECTIVE: VITAL SIGNS: Temperature 97.9, pulse 64, respirations 18, oxygen saturation 93% on room air, and blood pressure 105/58. GENERAL: Well-appearing elderly female, sitting up at edge of bed with no signs of acute distress. PULMONARY: Equal chest rise and fall. Clear breath sounds bilaterally. No signs of acute respiratory distress. CARDIAC: Regular rate and rhythm. No murmurs, gallops, or rubs. GASTROINTESTINAL: Abdomen is soft, nontender, and nondistended. EXTREMITIES: 2+ pulses in all extremities. Gross motor and sensation are intact. Right upper extremity with sling and splint that is in place. There is some swelling to the right upper extremity noted at the right hand. NEUROLOGIC: GCS is 15. LABORATORY FINDINGS: White count 14.6, hemoglobin 9.5, hematocrit 28.1, and platelets 205. Sodium 132, potassium 3.4, chloride 94, carbon dioxide 29, BUN 13, creatinine 0.69, glucose 139, phosphorus 3.0, and magnesium 1.9. ASSESSMENT: 1. Status post mechanical fall, on Eliquis, right humerus fracture, status post repair. 2. Orthostatic hypotension. 3. Urinary tract infection, complicated. 4. History of atrial fibrillation, hypertension, bipolar, and thyroid cancer. PLAN: The patient will continue her current diet and pain regimen. Continue physical and occupational therapy. Continue Cipro started overnight for urinary tract infection. We will discontinue central line in the left subclavian today after the electrolytes have completed. After the central line has been removed, we will restart the patient on Eliquis tonight, which she takes for atrial fibrillation and we will also use this as the anticoagulation for DVT prophylaxis. We will follow up the cultures from the [facility]. The patient would like to be discharged to rehab. We will start that paperwork tomorrow when case Management returns. The patient was discussed with Dr. Mirza before this dictation. Job ID: [id number]
[2019-08-11] MEDS: risperiDONE 1 MG TAB PO SCH (12:05)
--- NOTE | 2019-08-11 19:07 | DIS ---
DATE OF ADMISSION: 08/06/2019 DATE OF DISCHARGE: 08/11/2019 CONSULTING PHYSICIAN: Dr. Mcneil of Orthopedic Surgery. PROCEDURES: The patient went to the OR on August 07, 2019 and had an ORIF of the right proximal humerus. She also had a left-sided subclavian line placement. HOSPITAL COURSE: The patient is a 78-year-old female, who reported to the emergency department after a fall at her physician's office. The patient reported no loss of consciousness as she is on Eliquis. She was found to have a right proximal humerus fracture. She was admitted to the floor and the next day, she went to the OR with Dr. Mcneil of Orthopedic Surgery and had an ORIF of the right proximal humerus. The patient had significant blood loss intraoperatively, totaling about 800 mL. Postoperatively, the patient had signs and symptoms of hemorrhagic shock and was resuscitated, but still required small doses of pressors. Subsequently, she was moved to the ICU and stayed there for a little under 24 hours until she was maintaining her blood pressure. The patient was positive for orthostatic hypotension and was started on midodrine. Noted to also have a urinary tract infection, for which Cipro was started for 7 days. The patient was then transferred to the floor and worked with Physical and Occupational Therapy. She remained hemodynamically stable and her overall picture improved. The day before discharge, her left-sided subclavian was removed and she was restarted on her home Eliquis. Hemoglobins remain stable the next day. At the time of discharge, the patient was tolerating a regular diet, voiding without difficulties, had a bowel movement, was working with Physical Therapy and pain was well controlled. DISCHARGE DISPOSITION: Acute rehab. DISCHARGE CONDITION: Satisfactory. PHYSICAL EXAMINATION: VITAL SIGNS: Temperature 98.2, pulse 92, respirations 13, oxygen saturation 91% on room air, blood pressure 156/91. GENERAL: Well-appearing elderly female, sitting up at edge of bed with no signs of acute distress. PULMONARY: Equal chest rise and fall. Clear breath sounds bilaterally. No signs of acute respiratory distress. CARDIAC: Regular rate and rhythm. No murmurs, gallops, or rubs. GASTROINTESTINAL: Soft, nontender, nondistended. EXTREMITIES: 2+ pulses in all extremities. Gross motor and sensation are intact to right upper extremity with sling that is in place. Improving right hand swelling. NEUROLOGIC: GCS is 15. DISCHARGE INSTRUCTIONS: The patient was discharged to inpatient rehab. Activity as tolerated. Right upper extremity is in a sling. Regular diet. PT, OT, and incentive spirometry. DISCHARGE MEDICATIONS: Included Tylenol, Eliquis, calcium carbonate, Cipro x7 days, Depakote, Aricept, hydrocortisone taper, Synthroid, magnesium, midodrine, MiraLAX, Risperdal, Senokot-S, sertraline, tramadol. FOLLOWUP APPOINTMENTS: The patient is to follow up with Dr. Mcneil. She is also to follow up with her primary care physician within the next 1 to 2 weeks. Her home antihypertensive medications which are Norvasc and atenolol were not restarted during this hospital admission as she did not require them due to rate controlled atrial fibrillation and normal blood pressures. This is merely a summary of the patient's hospitalization. For full details, please see her medical record in its entirety. Job ID: [id number]
[2019-08-12] MEDS ORDERED: Magnesium Oxide 400 MG TAB PO SCH (09:00)
[2019-08-12] MEDS ORDERED: Hydrocortisone 10 mg Tablet PO SCH (09:00)
[2019-08-15] MEDS ORDERED: Hydrocortisone 10 mg Tablet PO SCH (09:00)
== END 2019-08-11 15:26 | DRG 492 ==
LOC: ERS 11:09 → SJJU 16:02 → CCU 08-07 11:19 → IMCU/EMU 08-07 11:55 → CCU 08-07 12:11 → SURG B 08-08 14:03
PROVIDERS: ADMIT Orthopaedic Surgery; ATTEND Orthopaedic Surgery
PROC: 0PSC04Z Reposition Right Humeral Head with Internal Fixation Device, Open Approach (ICD-10-PCS; principal; 2019-08-07)
PROC: 30233N1 Transfusion of Nonautologous Red Blood Cells into Peripheral Vein, Percutaneous Approach (ICD-10-PCS; 2019-08-07)
PROC: 3E033XZ Introduction of Vasopressor into Peripheral Vein, Percutaneous Approach (ICD-10-PCS; 2019-08-07)
DX: S42.291A Other displaced fracture of upper end of right humerus, initial encounter for closed fracture (principal); T81.19XA Other postprocedural shock, initial encounter; D62 Acute posthemorrhagic anemia; E27.40 Unspecified adrenocortical insufficiency; E87.1 Hypo-osmolality and hyponatremia; N39.0 Urinary tract infection, site not specified; W01.0XXA Fall on same level from slipping, tripping and stumbling without subsequent striking against object, initial encounter; I48.91 Unspecified atrial fibrillation; I10 Essential (primary) hypertension; F31.9 Bipolar disorder, unspecified; I95.1 Orthostatic hypotension; E87.6 Hypokalemia; E83.39 Other disorders of phosphorus metabolism; E83.42 Hypomagnesemia; Y83.8 Other surgical procedures as the cause of abnormal reaction of the patient, or of later complication, without mention of misadventure at the time of the procedure; Y92.89 Other specified places as the place of occurrence of the external cause; Z85.850 Personal history of malignant neoplasm of thyroid; Z79.01 Long term (current) use of anticoagulants; Z79.899 Other long term (current) drug therapy; Z88.8 Allergy status to other drugs, medicaments and biological substances; Z88.1 Allergy status to other antibiotic agents; Z88.0 Allergy status to penicillin
CPT/HCPCS: 36415; 36430; 70450; 71045; 76000; 80048; 80053; 81001; 82533; 83605; 83735; 84100; 85025; 85610; 85730; 86850; 86900; 86901; 87077; 87086; 87186; 93005; 93306; 96361; 96374; C1713; G0390; J0131; J1100; J1642; J1720; J1885; J2001; J2270; J2370; J2405; J2704; J3010; J3475; J3490; J7050; J7070; P9016

== ENCOUNTER 2019-08-27 18:28 | Emergency (ER) | payer MEDICARE, BC | END 2019-08-27 19:03 | disposition home or self-care (01) | LOC: ERS 18:28 | DX: R47.01 Aphasia (principal) | CPT/HCPCS: 99283 ==

== ENCOUNTER 2020-01-22 13:25 | Outpatient (CLI) | payer MEDICARE, BC ==
--- NOTE | 2020-01-22 14:42 | MMO ---
Bilateral MAMMO Bilat Screen [facility]. CLINICAL HISTORY: Patient is 79 years old and is seen for screening. The patient has the following family history of breast cancer: sister, 70'S. The patient has a history of thyroid cancer 1972. VIEWS: The views performed were: bilateral craniocaudal with tomosynthesis and bilateral mediolateral oblique with tomosynthesis. FILMS COMPARED: The present examination has been compared to prior imaging studies performed at [facility] on 09/14/2014, 09/15/2015, 10/13/2016 and 12/05/2017. This study has been interpreted with the assistance of computer-aided detection. MAMMOGRAM FINDINGS: There are scattered fibroglandular densities. There are stable benign appearing calcifications seen in both breasts. There are no suspicious masses, suspicious calcifications, or new areas of architectural distortion. IMPRESSION: THERE IS NO MAMMOGRAPHIC EVIDENCE OF MALIGNANCY. A ROUTINE FOLLOW-UP MAMMOGRAM IN 1 YEAR IS RECOMMENDED. THE RESULTS OF THIS EXAM WERE SENT TO THE PATIENT. ACR BI-RADS Category 2 - Benign finding MAMMOGRAPHY NOTE: 1. A negative mammogram report should not delay a biopsy if a dominant of clinically suspicious mass is present. 2. Approximately 10% to 15% of breast cancers are not detected by mammography. 3. Adenosis and dense breasts may obscure an underlying neoplasm. Reported by: MARY HALL MD Electonically Signed: [id number]
--- NOTE | 2020-01-22 15:11 | BD ---
BONE DENSITOMETRY USING DEXA: HISTORY: Postmenopausal screening for osteoporosis. Symptomatic menopausal state. FINDINGS: Lumbar Spine: BMD (g/cm2) L1 0.933 T-Score: -0.5 Z-Score: 1.8 L2 0.975 T-Score: -0.5 Z-Score: 2.2 L3 0.306 T-Score: -0.4 Z-Score: 2.3 L4 1.015 T-Score: -0.4 Z-Score: 2.4 L1-L4 0.993 T-Score: -0.5 Z-Score: 2.2 Femoral Neck: 0.600 T-Score: -2.2 Z-Score: 0.1 Total Femur: 0.987 T-Score: 0.4 Z-Score: 2.4 There has been interval improvement of 0.1% of the BMD of the lumbar spine and improvement of 6.7% of the BMD of the proximal femur since 03/17/1998. The 10-year fracture risk for a major osteoporotic fracture is 27% and for a hip fracture is 17%. Impression: Osteopenia. POS: KATE[facility]
== END 2020-01-22 13:26 | disposition home or self-care (01) ==
LOC: BICMAMMO 13:25
PROVIDERS: ATTEND Internal Medicine
DX: Z12.31 Encounter for screening mammogram for malignant neoplasm of breast (principal); Z13.820 Encounter for screening for osteoporosis; M85.859 Other specified disorders of bone density and structure, unspecified thigh; Z78.0 Asymptomatic menopausal state; Z85.850 Personal history of malignant neoplasm of thyroid
CPT/HCPCS: 77063; 77067; 77080

== ENCOUNTER 2021-02-25 09:54 | Outpatient (CLI) | payer MEDICARE, BC | END 2021-02-25 09:55 | disposition home or self-care (01) | LOC: BICRAD 09:54 | PROVIDERS: ATTEND Nurse Practitioner Family | DX: R06.02 Shortness of breath (principal) | CPT/HCPCS: 36415; 71046; 83880 ==

== ENCOUNTER 2021-04-05 14:26 | Outpatient (CLI) | payer MEDICARE, BC | END 2021-04-05 14:27 | disposition home or self-care (01) | LOC: BICRAD 14:26 | PROVIDERS: ATTEND Internal Medicine | DX: M25.551 Pain in right hip (principal); M16.11 Unilateral primary osteoarthritis, right hip ==

== ENCOUNTER 2021-09-16 12:58 | Outpatient (CLI) | payer MEDICARE, BC ==
[2021-09-17 00:08] LABS: SARS-CoV-2 PCR by NAA Not Detected (NotDetected)
== END 2021-09-16 12:59 | disposition home or self-care (01) ==
LOC: LABBT 12:58
PROVIDERS: ATTEND Family Medicine
DX: Z01.812 Encounter for preprocedural laboratory examination (principal); Z20.822 Contact with and (suspected) exposure to COVID-19
CPT/HCPCS: U0003; U0005

== ENCOUNTER 2021-09-19 13:09 | Outpatient (CLI) | payer MEDICARE, BC | END 2021-09-19 13:10 | disposition home or self-care (01) | PROVIDERS: ATTEND Student in an Organized Health Care Education/Training Program | DX: R13.10 Dysphagia, unspecified (principal); J38.01 Paralysis of vocal cords and larynx, unilateral | CPT/HCPCS: 74230 ==

== ENCOUNTER 2021-10-18 09:18 | Outpatient (CLI) | payer MEDICARE, BC | END 2021-10-18 09:19 | disposition home or self-care (01) | LOC: SCSMRI 09:18 | PROVIDERS: ATTEND Surgery | DX: M48.062 Spinal stenosis, lumbar region with neurogenic claudication (principal); M43.16 Spondylolisthesis, lumbar region; M47.816 Spondylosis without myelopathy or radiculopathy, lumbar region; S22.081A Stable burst fracture of T11-T12 vertebra, initial encounter for closed fracture | CPT/HCPCS: 72110; 72148 ==

== ENCOUNTER 2021-12-05 13:06 | Outpatient (CLI) | payer MEDICARE, BC | END 2021-12-05 13:07 | disposition home or self-care (01) | PROVIDERS: ATTEND Student in an Organized Health Care Education/Training Program | DX: R13.10 Dysphagia, unspecified (principal); J38.00 Paralysis of vocal cords and larynx, unspecified | CPT/HCPCS: 74230 ==